=== PATIENT | female | born 1945 | race Hispanic/Latino ===

== ENCOUNTER 2018-10-02 03:20 | Inpatient (IN) | payer MEDICARE, OTHER ==
--- NOTE | 2018-10-02 04:16 | ED PDOC ---
Arrival/HPI - General Chief Complaint: Abdominal Pain Time Seen by Provider: 10/02/18 03:46 Historian: Patient - History of Present Illness Narrative History of Present Illness (Text): 10/02/18 04:20 Marilee Rudolph is a 73 year old female, whose past medical history includes hypertension, PE, DVT, TIA, and hyperlipidemia, who presents to the Emergency department accompanied by daughter complaining of confusion. Daughter reports patient has been experiencing intermittent periods of confusion/disorientation over the past couple of days. Daughter notes patient was recently diagnosed with a UTI and placed on antibiotics 3 days ago by her PMD. On arrival, patient is awake, alert, and oriented x3. Patient reports some suprapubic pain and burning with urination. Patient denies any fever, chills, chest pain, shortness of b reath, nausea, vomiting, diarrhea, back pain, neck pain, headache, dizziness, or any other complaints. PMD: Dr. Guzman Symptom Onset: Gradual Symptom Course: Unchanged Activities at Onset: Light Context: Home Past Medical History - Provider Review Nursing Documentation Reviewed: Yes - Infectious Disease Hx of Infectious Diseases: None - Tetanus Immunization Tetanus Immunization: Unknown - Cardiac Hx Hypertension: Yes Other/Comment: hx- DVT and PE - Pulmonary Hx Respiratory Disorders: No - Neurological HX Cerebrovascular Accident: Yes (TIA) - HEENT Hx HEENT Disorder: No - Renal Hx Renal Disorder: No - Endocrine/Metabolic Hx Endocrine Disorders: No - Hematological/Oncological Hx Blood Disorders: No - Musculoskeletal/Rheumatological Hx Musculoskeletal Disorders: No Hx Arthritis: Yes - Gastrointestinal Hx Gastrointestinal Disorders: No - Genitourinary/Gynecological Hx Genitourinary Disorders: No - Psychiatric Hx Anxiety: Yes Hx Depression: Yes Hx Substance Use: No - Surgical History Hx Appendectomy: Yes Other/Comment: R arm sx as child - Anesthesia Hx Anesthesia: Yes Hx Anesthesia Reactions: No Family/Social History - Physician Review Nursing Documentation Reviewed: Yes Family/Social History: Unknown Family HX Smoking Status: Never Smoked Hx Alcohol Use: No Hx Substance Use: No Allergies/Home Meds Allergies/Adverse Reactions: Allergies No Known Allergies Allergy (Verified 10/02/18 03:56) Home Medications: Home Meds Medication Instructions Recorded Confirmed Atorvastatin [Lipitor] 10 mg PO DAILY 10/02/18 10/02/18 Furosemide [Lasix] 40 mg PO DAILY 10/02/18 10/02/18 Losartan/Hydrochlorothiazide 1 tab PO DAILY 10/02/18 10/02/18 [Hyzaar 100-25 Tablet] Metoprolol [place]/Hydrochlorothiaz 1 tab PO DAILY 10/02/18 10/02/18 [Metoprolol ER-Hctz 25-12.5 mg] Oxybutynin [Ditropan Tab] 5 mg PO DAILY 10/02/18 10/02/18 Pantoprazole [Protonix EC Tab] 40 mg PO DAILY 10/02/18 10/02/18 Potassium Chloride [Klor-Con M10] 10 meq PO DAILY 10/02/18 10/02/18 Warfarin [Coumadin] 3 mg PO DAILY 10/02/18 10/02/18 amLODIPine [Norvasc] 10 mg PO DAILY 10/02/18 10/02/18 hydrALAZINE [Apresoline] 50 mg PO DAILY 10/02/18 10/02/18 traZODone [Desyrel] 50 mg PO DAILY 10/02/18 10/02/18 Review of Systems - Physician Review All systems were reviewed & negative as marked: Yes - Review of Systems Constitutional: Normal. absent: Fevers Eyes: Normal ENT: Normal Respiratory: Normal. absent: SOB, Cough Cardiovascular: Normal. absent: Chest Pain Gastrointestinal: Abdominal Pain. absent: Diarrhea, Nausea, Vomiting Genitourinary Female: Dysuria Musculoskeletal: Normal. absent: Back Pain, Neck Pain Skin: Normal. absent: Rash Neurological: Normal. absent: Headache, Dizziness Endocrine: Normal Hemo/Lymphatic: Normal Psychiatric: Normal Physical Exam Vital Signs Reviewed: Yes Vital Signs Temp Pulse Resp BP Pulse Ox 10/02/18 03:58 98.1 F 73 16 114/79 96 Temperature: Afebrile Blood Pressure: Normal Pulse: Regular Respiratory Rate: Normal Appearance: Positive for: Well-Appearing, Non-Toxic, Comfortable Pain Distress: None Mental Status: Positive for: Alert and Oriented X 3 - Systems Exam Head: Present: Atraumatic, Normocephalic Pupils: Present: PERRL Extroacular Muscles: Present: EOMI Conjunctiva: Present: Normal Mouth: Present: Moist Mucous Membranes Neck: Present: Normal Range of Motion Respiratory/Chest: Present: Clear to Auscultation, Good Air Exchange. No: Resp iratory Distress, Accessory Muscle Use Cardiovascular: Present: Regular Rate and Rhythm, Normal S1, S2. No: Murmurs Abdomen: No: Tenderness, Distention, Peritoneal Signs Back: Present: Normal Inspection Upper Extremity: Present: Normal Inspection. No: Cyanosis, Edema Lower Extremity: Present: Normal Inspection. No: Edema Neurological: Present: GCS=15, CN II-XII Intact, Speech Normal Skin: Present: Warm, Dry, Normal Color. No: Rashes Psychiatric: Present: Alert, Oriented x 3, Normal Insight, Normal Concentration Medical Decision Making ED Course and Treatment: 10/02/18 07:05 CT scan of the head. CLINICAL HISTORY: Altered mental status. TECHNIQUE: Multiple axial CT images were obtained through the brain without IV contrast material. COMPARISON: 08/29/2017. COMMENTS: Left frontal chronic ischemic encephalomalacia. There is normal configuration of sella turcica. There are no intra or extra- axial collections. There is no mass effect or midline shift. There is no evidence of hematoma formation. No hydrocephalus is present. The ventricles are symmetrical. No abnormal calcifications are present. There is diffuse age-appropriate cerebellar and cerebral atrophy with proportionally dilated ventricles and cortical sulci. There are bilateral periventricular and subcortical white matter hypolucencies compatible with mild chronic microvascular disease. Otherwise, no significant focal abnormalities are seen either in the posterior fossa or supratentorial compartment. IMPRESSION: 1. Age-appropriate cerebellar and cerebral atrophy. 2. Mild chronic microvascular disease. 3. No evidence of acute intracranial pathology. 10/02/18 07:06 CLINICAL INDICATION: Lower abdominal pain. TECHNIQUE: Axial and reformatted sagittal and coronal images of the abdomen pelvis obtained without IV contrast administration. COMPARISON: None. FINDINGS: The visualized lung bases are unremarkable. Normal unenhanced liver. Normal gallbladder and extrahepatic biliary system. Normal unenhanced spleen. Normal pancreas. Normal bilateral adrenal glands. Normal size of the right kidney. There is no right renal mass. There are no r ight renal calculi. There is no right hydronephrosis. Normal visualized right ureter. 1.8 cm well-defined hyperdense lesion of the right kidney, probably a complex cyst. Normal size of the left kidney. There is no left renal mass. There are no left renal calculi. There is no left hydronephrosis. Normal visualized left ureter. Normal visualized stomach. Normal small intestine. Uncomplicated diverticulosis of the colon. The appendix is surgically absent. There is no demonstrated peritoneal fluid. Normal abdominal aorta. Normal inferior vena cava. Normal retroperitoneum. Mild right posterolateral hyperdensity of the bladder wall measuring 2.5 x 1.2 cm. Distended urinary bladder. There is no pelvic mass lesion or lymphadenopathy. There is no pelvic fluid. Hysterectomy. Normal abdominal wall. Moderate diffuse spondylosis. IMPRESSION: Distended bladder. Mild right posterolateral hyperdensity of the bladder wall. This can be secondary to acute hemorrhagic material, clot or neural neoplastic pathology. Followup is suggested. Electronically signed on Oct 02, 2018 6:43:28 AM EST by: Aly Hoff M.D., Certified by ABR, MSK, Neuroradiology 10/02/18 07:00 Case was discussed with .Accepts to her service.Pt. voided large amount o urine short while prior.U/A Urine c/s was sent.Pt. had previously been started on Cipro currently taking for UTI.Dr. Guzman suggests starting IV Rocephin.Request urology consult . - Lab Interpretations I have reviewed the lab results: Yes - RAD Interpretation Hand Riveter: ED Physician - EKG Interpretation EKG Interpretation (Text): 10/02/18 07:07 EKG-NSR @79 normal ekg Interpreted by ED Physician: Yes Type: 12 lead EKG - Scribe Statement The provider has reviewed the documentation as recorded by the Cristianibe Macie Mir Provider Scribe Attestation: All medical record entries made by the Scribe were at my direction and personally dictated by me. I have reviewed the chart and agree that the record accurately reflects my personal performance of the history, physical exam, medical decision making, and the department course for this patient. I have also personally directed, reviewed, and agree with the discharge instructions and disposition. Disposition/Present on Arrival - Present on Arrival Any Indicators Present on Arrival: No History of DVT/PE: No History of Uncontrolled Diabetes: No Urinary Catheter: No History of Decub. Ulcer: No History Surgical Site Infection Following: None - Disposition Have Diagnosis and Disposition been Completed?: Yes Diagnosis: Altered mental status, UTI (urinary tract infection) Disposition: HOSPITALIZED Disposition Time: 07:00 Patient Plan: Observation Patient Problems: Current Active Problems Problem Status Onset Altered mental status Acute UTI (urinary tract infection) Acute Condition: STABLE Forms: [facility] ([place]ican)
[2018-10-02 05:28] LABS: HEMOGLOBIN 11.2 g/dL (12.0-16.0); MEAN CELL VOLUME 87.6 fl (80.0-105.0); MEAN CORPUSCULAR HEMOGLOBIN 27.9 pg (25.0-35.0); MEAN CORPUSCULAR HGB CONC 31.8 g/dl (31.0-37.0); MEAN PLATELET VOLUME 10.8 fl (7.0-11.0); RBC 4.02 10^6/uL (3.5-6.1); RED CELL DISTRIBUTION WIDTH 14.3 % (11.5-14.5); WHITE BLOOD COUNT 7.9 10^3/uL (4.5-11.0)
[2018-10-02 05:39] LABS: ALB/GLOB RATIO 1.1 (1.1-1.8); ALBUMIN 3.9 g/dL (3.0-4.8); ALT/SGPT 25 U/L (7-56); AST/SGOT 35 U/L (14-36); BLOOD UREA NITROGEN 44 mg/dL (7-21); CALCIUM 9.8 mg/dL (8.4-10.5); GFR NON-AFRICAN AMERICAN 17; LIPASE 643 U/L (23-300)
[2018-10-02 05:50] LABS: TROPONIN I < 0.01 ng/mL
[2018-10-02] MEDS ORDERED: Sodium Chloride 0.9% 1,000 ML IV STA (06:00)
[2018-10-02] MEDS ORDERED: cefTRIAXone 1 gm 1 GM/100 ML BAG IV STA (06:58)
[2018-10-02 07:39] LABS: URINE BILIRUBIN NEGATIVE (NEGATIVE); URINE BLOOD TRACE-INTACT (NEGATIVE); URINE GLUCOSE (UA) NEGATIVE (NEGATIVE); URINE LEUKOCYTE ESTERASE SMALL Leu/uL (NEGATIVE); URINE PROTEIN NEGATIVE mg/dL (<30 mg/dL); URINE UROBILINOGEN 0.2 E.U./dL (<1 E.U./dL)
[2018-10-02 07:41] LABS: URINE APPEARANCE CLEAR (CLEAR); URINE COLOR YELLOW (YELLOW)
[2018-10-02 07:55] LABS: URINE BACTERIA SMALL (NEG)
--- NOTE | 2018-10-02 09:23 | CT ---
Date of service: 10/02/2018 PROCEDURE: CT HEAD WITHOUT CONTRAST. HISTORY: ams COMPARISON: 08/29/2017 TECHNIQUE: Axial computed tomography images were obtained through the head/brain without intravenous contrast. Radiation dose: Total exam DLP = 867.6 mGy-cm. This CT exam was performed using one or more of the following dose reduction techniques: Automated exposure control, adjustment of the mA and/or kV according to patient size, and/or use of iterative reconstruction technique. FINDINGS: HEMORRHAGE: No intracranial hemorrhage. BRAIN: No mass effect or edema. Chronic periventricular white matter ischemic disease with old left MCA distribution infarct. VENTRICLES: Unremarkable. No hydrocephalus. CALVARIUM: Unremarkable. PARANASAL SINUSES: Unremarkable as visualized. No significant inflammatory changes. MASTOID AIR CELLS: Unremarkable as visualized. No inflammatory changes. OTHER FINDINGS: None. IMPRESSION: No acute hemorrhage.
--- NOTE | 2018-10-02 09:28 | CT ---
Date of service: 10/02/2018 PROCEDURE: CT Abdomen and Pelvis without intravenous contrast HISTORY: lower abdominal pain COMPARISON: None. TECHNIQUE: Technique. Contrast dose: Radiation dose: Total exam DLP = 897.26 mGy-cm. This CT exam was performed using one or more of the following dose reduction techniques: Automated exposure control, adjustment of the mA and/or kV according to patient size, and/or use of iterative reconstruction technique. FINDINGS: LOWER THORAX: Unremarkable. LIVER: Unremarkable. No gross lesion or ductal dilatation. GALLBLADDER AND BILE DUCTS: Unremarkable. PANCREAS: Unremarkable. No gross lesion or ductal dilatation. SPLEEN: Unremarkable. ADRENALS: Unremarkable. No mass. KIDNEYS AND URETERS: Unremarkable. No hydronephrosis. No solid mass. VASCULATURE: Unremarkable. No aortic aneurysm. No aortic atherosclerotic calcification or mural plaque present. BOWEL: Unremarkable. No obstruction. No gross mural thickening. APPENDIX: Unremarkable. Normal appendix. PERITONEUM: Unremarkable. No free fluid. No free air. LYMPH NODES: Unremarkable. No enlarged lymph nodes. BLADDER: Nonspecific 18 millimeter right posterior-lateral bladder soft tissue density; cannot exclude neoplasm; with cystoscopy. REPRODUCTIVE: Unremarkable. BONES: No acute fracture. OTHER FINDINGS: None. IMPRESSION: Nonspecific 18 millimeter right posterior-lateral bladder soft tissue density; cannot exclude neoplasm; with cystoscopy.
[2018-10-02] MEDS ORDERED: METOPROLOL SU PO SCH (11:15)
[2018-10-02] MEDS ORDERED: [UNRECOGNIZED DRUG - OTHER] PO SCH (11:15)
[2018-10-02] MEDS ORDERED: HYDROCHLOROTHIAZ PO SCH (11:15)
[2018-10-02] MEDS ORDERED: Non Formulary Medication (Losartan/Hydrochlorothiazide [Hyzaar 100-25 Tablet] 1 TAB) PO SCH (11:15)
[2018-10-02] MEDS ORDERED: Metoprolol Succinate 25 mg XL Tab PO ONE (11:30)
[2018-10-02] MEDS: Pantoprazole 40 mg EC Tab PO SCH (12:29)
[2018-10-02] MEDS: Dextrose 5%/0.45% NS 1,000 ML IV SCH (12:29)
[2018-10-02 13:43] VITALS: BMI 34.0
[2018-10-02] MEDS ORDERED: Pneumococcal 23-Valent Vaccine IM ONE (13:44)
[2018-10-02] MEDS ORDERED: Influenza Vaccine 60 mcg/0.5 mL SYR (4YR UP) IM ONE (13:44)
--- NOTE | 2018-10-02 14:35 | CARD ---
APPROVED REPORT Date of service: 10/02/2018 EKG Measurement Heart [id number] <Conclusion> Normal sinus rhythm Normal ECG
--- NOTE | 2018-10-02 14:59 | CP.PCM.CON ---
<Gautam Mc - Last Filed: 10/02/18 14:55> History of Present Illness - History of Present Illness History of Present Illness: Podiatry consult notes for attending Dr. Madsen: 73 y/o F patient with PMH of hypertension, PE, DVT, TIA, and hyperlipidemia seen and evaluated in the bedside for b/l foot and ankle pain. Patient was sitting in her bed comfortably and NAD. Patient looks a little confused at the encounter time. Patient states that both her feet and ankles are hurting her when specially when she is on the bed. She states that the pain is in her joints and it's 6/10. Patient states that the pain gets better by walking. She states that the pain is present since many years. She states that she has attacks of burning sensations in her feet but she denies any tingling or numbness. Patient states that she had a stroke but by reviewing her medical chart she had TIA. Patient de nies any recent F/N/V/C/C/CP or SOB. PMH: hypertension, PE, DVT, TIA, and hyperlipidemia. PSH: Appendectomy, Hysterectomy and surgery of her R arm. Allergies: NKDA. Social Hx: Denies smoking, EtOH use or Illicit drug use. Review of Systems - Review of Systems Review of Systems: As per HPI - Constitutional Constitutional: As Per HPI Past Patient History - Infectious Disease Hx of Infectious Diseases: None - Tetanus Immunizations Tetanus Immunization: Unknown - Past Social History Smoking Status: Never Smoked - CARDIAC Hx Cardiac Disorders: Yes Hx Hypercholesterolemia: Yes Hx Hypertension: Yes Hx Peripheral Edema: Yes (ble +2 pitting feet ankles lower legs) Other/Comment: hx- DVT left leg poplitial vein 09/05/17 and PE 09/05/17 - PULMONARY Hx Respiratory Disorders: Yes Hx Bronchitis: Yes - NEUROLOGICAL Hx Neurological Disorder: Yes HX Cerebrovascular Accident: Yes (TIA no deficits 8 yrs ago) - HEENT Hx HEENT Problems: No - RENAL Hx Chronic Kidney Disease: No - ENDOCRINE/METABOLIC Hx Endocrine Disorders: No - HEMATOLOGICAL/ONCOLOGICAL Hx Blood Disorders: No - INTEGUMENTARY Hx Dermatological Problems: Yes Other/Comment: generalized moles over body, dry skin to both heels left heel hard dry skin, dry skin both feet, dry toenails, stage 1 moisture related red closed wound to right buttocks, buttocks reddened - MUSCULOSKELETAL/RHEUMATOLOGICAL Hx Falls: No - GASTROINTESTINAL Hx Gastrointestinal Disorders: Yes (obese) Other/Comment: constipation about 1 month has bm every 2 days not taking any otc laxatives, winds up going on her own, "but it's hard." stated pt - GENITOURINARY/GYNECOLOGICAL Hx Genitourinary Disorders: Yes Hx Incontinence: Yes Hx Urinary Tract Infection: Yes (uti dx 3 days ago on abx) - PSYCHIATRIC Hx Substance Use: No - SURGICAL HISTORY Hx Surgeries: Yes Hx Appendectomy: Yes Other/Comment: R arm sx as child - ANESTHESIA Hx Anesthesia: Yes Hx Anesthesia Reactions: No Meds Allergies/Adverse Reactions: Allergies Allergy/AdvReac Type Severity Reaction Status Date / Time No Known Allergies Allergy Verified 10/02/18 03:56 - Medications Medications: Current Medications Amlodipine Besylate (Norvasc) 10 mg PO DAILY [facility] Last Admin: 10/02/18 12:27 Dose: 10 mg Atorvastatin Calcium (Lipitor) 10 mg PO DAILY [facility] Last Admin: 10/02/18 12:26 Dose: 10 mg Hydralazine HCl (Apresoline) 50 mg PO DAILY [facility] Last Admin: 10/02/18 12:27 Dose: 50 mg Hydrochlorothiazide (Microzide) 12.5 mg PO DAILY [facility] Dextrose/Sodium Chloride (Dextrose 5%/0.45% Ns 1000 Ml) 1,000 mls @ 75 mls/hr IV .[id number] [facility] Last Admin: 10/02/18 12:29 Dose: 75 mls/hr Ceftriaxone Sodium (Rocephin 1 Gram Ivpb) 1 gm in 100 mls @ 100 mls/hr IVPB DAILY [facility]; Protocol Losartan Potassium (Cozaar) 100 mg PO DAILY [facility] Metoprolol Succinate (Toprol Xl) 25 mg PO DAILY [facility] Pantoprazole Sodium (Protonix Ec Tab) 40 mg PO DAILY [facility] Last Admin: 10/02/18 12:29 Dose: 40 mg Trazodone HCl (Desyrel) 50 mg PO [facility] Physical Exam - Constitutional Appears: Well, Non-toxic, No Acute Distress - Head Exam Head Exam: ATRAUMATIC, NORMOCEPHALIC - Extremities Exam Additional comments: B/L LE focused exam: Vasc: DP 2/4, PT 1/4 due to perimalleolar edema. Cap refill < 3 sec to all digits. Temp gradient warm to cool from proximal to distal. B/L moderate non pitting perimalleolar edema L > R. Neuro: Gross and protective sensations are intact b/l. Derm: No open lesions, no clinical signs of active infections, Toe nails discolored and distrophic X 10. Diffuse dryness noted to the plantar aspect of the heel and the the lateral perimalleolar area b/l. MSK: Pain on palpating the ankle joint b/l. Pain with eversion of the foot b/l. Muscle power intact to all groups 5/5. - Neurological Exam Neurological exam: Alert Results - Vital Signs Recent Vital Signs: Last Vital Signs Temp 97.6 F 10/02/18 07:28 Pulse 81 10/02/18 12:26 Resp 18 10/02/18 13:23 BP 125/64 10/02/18 12:27 Pulse Ox 96 10/02/18 07:28 - Labs Result Diagrams: 10/02/18 04:50 10/02/18 04:50 Labs: Laboratory Results - last 24 hr 10/02/18 10/02/18 10/02/18 04:50 04:50 06:45 WBC 7.9 RBC 4.02 Hgb 11.2 L Hct 35.2 L MCV 87.6 MCH 27.9 MCHC 31.8 RDW 14.3 Plt Count 196 MPV 10.8 Sodium 137 Potassium 4.2 Chloride 102 Carbon Dioxide 27 Anion Gap 13 BUN 44 H Creatinine 2.7 H Est GFR ( Amer) 21 Est GFR (Non-Af Amer) 17 Random Glucose 106 Calcium 9.8 Total Bilirubin 0.5 AST 35 ALT 25 Alkaline Phosphatase 67 Lactate Dehydrogenase 442 Total Creatine Kinase 66 Troponin I < 0.01 D Total Protein 7.4 Albumin 3.9 Globulin 3.5 Albumin/Globulin Ratio 1.1 Lipase 643 H Urine Color Yellow Urine Appearance Clear Urine pH 6.0 Ur Specific [place] 1.015 Urine Protein Negative Urine Glucose (UA) Negative Urine Ketones Negative Urine Blood Trace-intact H Urine Nitrate Negative Urine Bilirubin Negative Urine Urobilinogen 0.2 Ur Leukocyte Esterase Small H Urine RBC 10 - 15 Urine WBC 10 - 15 Ur Epithelial Cells 1 - 3 Urine Bacteria Small Assessment & Plan - Assessment and Plan (Free Text) Assessment: 73 y/o F patient seen and evaluated in the bedside for b/l foot and ankle pain. Plan: - Patient seen and evaluated at the bedside. - Plan discussed in details with attending dr. Madsen. - Charts, labs and vitals reviewed: Afebrile, no leukocytosis - Ordered B/L 3 views foot x-ray. - Ordered B/L 3 views ankle x-ray. - RX; Lotrimine 1% cream topical BID. - Rx; Ammonium lactate 12% cream topical BID. - Thank you for consulting podiatry service. - Podiatry will continue to follow up the patient while in house. - Date & Time Date: 10/02/18 Time: 15:14 <Torie Madsen - Last Filed: 10/06/18 15:14> Meds - Medications Medications: Current Medications Alprazolam (Xanax) 0.5 mg PO TID PRN; Protocol PRN Reason: severe anxiety Stop: 10/11/18 18:01 Last Admin: 10/06/18 15:11 Dose: 0.5 mg Amlodipine Besylate (Norvasc) 10 mg PO DAILY [facility] Last Admin: 10/06/18 10:13 Dose: 10 mg Atorvastatin Calcium (Lipitor) 10 mg PO DAILY [facility] Last Admin: 10/06/18 10:13 Dose: 10 mg Cefpodoxime Proxetil (Vantin) 200 mg PO DAILY [facility] Last Admin: 10/06/18 10:13 Dose: 200 mg Hydralazine HCl (Apresoline) 50 mg PO DAILY [facility] Last Admin: 10/06/18 10:13 Dose: 50 mg Hydrochlorothiazide (Microzide) 12.5 mg PO DAILY [facility] Last Admin: 10/06/18 10:13 Dose: 12.5 mg Lactic Acid (Lac-Hydrin 12% Cream (140 G)) 1 ea TOP BID [facility] Last Admin: 10/06/18 10:13 Dose: 1 appl Losartan Potassium (Cozaar) 100 mg PO DAILY [facility] Last Admin: 10/06/18 10:13 Dose: 100 mg Metoprolol Succinate (Toprol Xl) 25 mg PO DAILY [facility] Last Admin: 10/06/18 10:12 Dose: 25 mg Oxybutynin Chloride (Ditropan Tab) 5 mg PO BID [facility] Last Admin: 10/06/18 10:13 Dose: 5 mg Pantoprazole Sodium (Protonix Ec Tab) 40 mg PO DAILY [facility] Last Admin: 10/06/18 10:13 Dose: 40 mg Trazodone HCl (Desyrel) 50 mg PO HS [facility] Last Admin: 10/05/18 22:27 Dose: 50 mg Warfarin Sodium (Coumadin) 6 mg PO 1800 [facility]; Protocol Last Admin: 10/05/18 19:08 Dose: 6 mg Results - Vital Signs Recent Vital Signs: Last Vital Signs Temp 98.9 F 10/06/18 14:00 Pulse 96 H 10/06/18 14:00 Resp 18 10/06/18 14:00 BP 106/65 10/06/18 14:00 Pulse Ox 94 L 10/06/18 14:00 - Labs Result Diagrams: 10/04/18 06:30 10/06/18 06:45 Labs: Laboratory Results - last 24 hr 10/06/18 10/06/18 06:45 06:45 PT 30.3 H INR 2.58 Sodium 138 Potassium 4.1 Chloride 105 Carbon Dioxide 30 Anion Gap 8 L BUN 21 Creatinine 1.5 H Est GFR ( Amer) 41 Est GFR (Non-Af Amer) 34 Random Glucose 102 Calcium 8.9 Total Bilirubin 0.2 AST 21 ALT 29 Alkaline Phosphatase 53 Total Protein 5.9 Albumin 3.0 Globulin 2.9 Albumin/Globulin Ratio 1.0 L Attending/Attestation - Attestation I have personally seen and examined this patient.: Yes I have fully participated in the care of the patient.: Yes I have reviewed all pertinent clinical information: Yes
--- NOTE | 2018-10-02 15:26 | HP ---
DATE OF EXAM: 10/02/2018 HISTORY OF PRESENT ILLNESS: Patient is a 73-year-old, seen in office. According to daughter, she is sluggish and not herself. She was found to have UTI. She was started on Cipro, but yesterday patient's daughter noted that she seemed to be little confused, not feeling feel, and not eating. She recently lost her . She thought it is because of depression. She was also started on some anxiety medication. There was no history of fever or chills. No history of nausea or vomiting, but does not decrease appetite. No abdominal pain. She did have suprapubic discomfort. PAST MEDICAL HISTORY: Significant for; 1. Hypertension. 2. Hyperlipidemia. 3. History of anxiety. 4. History of PE on oral anticoagulant. ALLERGIES: SHE IS NOT ALLERGIC TO ANY MEDICATIONS. MEDICATIONS AT HOME: She is on Coumadin 3 mg daily, she is on Protonix 40 mg daily, she is on potassium 10 mEq daily, Lasix 40 mg daily, hydralazine 50 mg daily, oxybutynin, losartan, metoprolol, trazodone and atorvastatin. SOCIAL HISTORY: She lives with her daughter and no history of smoking or drinking. PHYSICAL EXAMINATION GENERAL: She is awake, alert, oriented, and communicative. VITAL SIGNS: She is afebrile. Pulse 80, respirations 18 and blood pressure 125/64. LUNGS: Bilateral fair airflow. No rhonchi or crackle. HEART: S1 and S2 audible. ABDOMEN: Soft and nontender. No rebound. No guarding. NEUROLOGICAL: Patient is awake, alert, oriented, and able to communicate. LABORATORY DATA: WBC 7.9, hemoglobin 11.2, hematocrit 35.2, and platelets of 196. Chemistry; sodium 137, potassium 4.2, chloride 102, CO2 of 27, BUN 44, creatinine and blood sugar 106. LFTs are within normal limits. Urine shows intact blood, small leukocyte, WBC is [address] scan of the abdomen and pelvis was done that shows nonspecific 18 mm right posterolateral bladder soft tissue. ASSESSMENT: 1. Acute renal failure, probably poor oral intake and dehydration. 2. Urinary tract infection. 3. History of hypertension. 4. Pulmonary emboli. 5. Anxiety disorder. PLAN: We will request Dr. Metzger to see patient. Dr. Ventura is on the case. We will continue antibiotics, continue IV fluid and monitor her electrolyte. CBC, CMP, and PT/INR in a.m. Neo Guzman MD
[2018-10-02] MEDS: Ammonium Lactate 12% Lotion (225 g) EXT SCH (17:41)
[2018-10-02] MEDS: Ammonium Lactate 12% Cream (140 g) TOP SCH (17:42)
[2018-10-02] MEDS ORDERED: Ammonium Lactate 12% Lotion (225 g) EXT SCH (18:00)
[2018-10-02] MEDS ORDERED: Ammonium Lactate 12% Cream (140 g) TOP SCH (18:00)
[2018-10-03 06:59] LABS: BASO # 0.04 K/mm3 (0.0-2.0); BASO % 0.6 % (0.0-3.0); EOS # 0.2 (0.0-0.7); EOS % 3.3 % (1.5-5.0); GRAN # 4.31 (1.4-6.5); GRAN % 67.9 % (50.0-68.0); HEMOGLOBIN 10.6 g/dL (12.0-16.0); LYMPH # 1.4 (1.2-3.4); LYMPH % 21.9 % (22.0-35.0); MEAN CELL VOLUME 87.5 fl (80.0-105.0); MEAN CORPUSCULAR HEMOGLOBIN 27.7 pg (25.0-35.0); MEAN CORPUSCULAR HGB CONC 31.6 g/dl (31.0-37.0); MEAN PLATELET VOLUME 10.7 fl (7.0-11.0); MONO # 0.4 (0.1-0.6); MONO % 6.3 % (1.0-6.0); RBC 3.83 10^6/uL (3.5-6.1); RED CELL DISTRIBUTION WIDTH 14.4 % (11.5-14.5); WHITE BLOOD COUNT 6.4 10^3/uL (4.5-11.0)
[2018-10-03 07:01] LABS: INR 1.84; PROTHROMBIN TIME 21.4 SECONDS (9.4-12.5)
[2018-10-03 08:16] LABS: ALB/GLOB RATIO 1.1 (1.1-1.8); ALBUMIN 3.4 g/dL (3.0-4.8); CALCIUM 9.3 mg/dL (8.4-10.5)
[2018-10-03] MEDS: Metoprolol Succinate 25 mg XL Tab PO SCH (09:57)
[2018-10-03] MEDS: Pantoprazole 40 mg EC Tab PO SCH (09:58)
--- NOTE | 2018-10-03 10:07 | RAD ---
Date of service: 10/02/2018 PROCEDURE: Right Ankle Radiographs. HISTORY: Right ankle pain COMPARISON: None available. FINDINGS: BONES: Normal. No fracture. JOINTS: Normal. No osteoarthritis. Ankle mortise maintained. Talar dome intact SOFT TISSUES: Normal. OTHER FINDINGS: None. IMPRESSION: Normal right ankle radiographs.
--- NOTE | 2018-10-03 10:08 | RAD ---
Date of service: 10/02/2018 PROCEDURE: Right Foot Radiographs. HISTORY: Right foot pain COMPARISON: None. FINDINGS: BONES: Normal. No fracture. JOINTS: Mild degenerative changes in the interphalangeal joints SOFT TISSUES: Normal. OTHER FINDINGS: None. IMPRESSION: Mild degenerative changes in the interphalangeal joints
--- NOTE | 2018-10-03 10:09 | RAD ---
Date of service: 10/02/2018 PROCEDURE: Left Ankle Radiographs. HISTORY: Left ankle pain COMPARISON: None available. FINDINGS: BONES: Normal. No fracture. JOINTS: Normal. No osteoarthritis. Ankle mortise maintained. Talar dome intact SOFT TISSUES: Normal. OTHER FINDINGS: None. IMPRESSION: Normal left ankle radiographs.
[2018-10-03] MEDS: cefTRIAXone 1 gm 1 GM/100 ML BAG IVPB SCH (10:10)
[2018-10-03] MEDS: Ammonium Lactate 12% Lotion (225 g) EXT SCH ×2 (11:00→17:35)
--- NOTE | 2018-10-03 11:38 | CP.PCM.PN ---
<Gautam Mc - Last Filed: 10/03/18 13:16> Subjective - Date & Time of Evaluation Date of Evaluation: 10/03/18 Time of Evaluation: 11:35 - Subjective Subjective: Podiatry consult notes for attending Dr. Guerra: 73 y/o F patient seen and evaluated in the bedside for b/l foot and ankle pain. Patient was sitting in her bed comfortably and NAD. Patient states that the pain ia present but less than yesterday. Patient denies any overnight F/N/V/C/C/CP or SOB. Patient denies any other pedal complaint at this time. Objective - Vital Signs/Intake and Output Vital Signs (last 24 hours): Temp Pulse Resp BP Pulse Ox 97.8 F 88 20 111/77 96 10/03/18 07:00 10/03/18 09:57 10/03/18 07:00 10/03/18 09:59 10/03/18 07:00 Intake and Output: 10/03/18 10/03/18 06:59 18:59 Intake Total 180 Balance 180 - Medications Medications: Current Medications Amlodipine Besylate (Norvasc) 10 mg PO DAILY [facility] Last Admin: 10/03/18 09:59 Dose: 10 mg Atorvastatin Calcium (Lipitor) 10 mg PO DAILY [facility] Last Admin: 10/03/18 09:57 Dose: 10 mg Hydralazine HCl (Apresoline) 50 mg PO DAILY [facility] Last Admin: 10/03/18 09:57 Dose: 50 mg Hydrochlorothiazide (Microzide) 12.5 mg PO DAILY [facility] Last Admin: 10/03/18 09:59 Dose: 12.5 mg Dextrose/Sodium Chloride (Dextrose 5%/0.45% Ns 1000 Ml) 1,000 mls @ 75 mls/hr IV .[id number] [facility] Last Admin: 10/02/18 12:29 Dose: 75 mls/hr Ceftriaxone Sodium (Rocephin 1 Gram Ivpb) 1 gm in 100 mls @ 100 mls/hr IVPB DAILY [facility]; Protocol Last Admin: 10/03/18 10:10 Dose: 100 mls/hr Lactic Acid (Lac-Hydrin 12% Lotion (225 G)) 0 gm EXT BID [facility] Last Admin: 10/02/18 17:41 Dose: 1 applic Lactic Acid (Lac-Hydrin 12% Cream (140 G)) 1 ea TOP BID [facility] Last Admin: 10/02/18 17:42 Dose: Not Given Losartan Potassium (Cozaar) 100 mg PO DAILY [facility] Last Admin: 10/03/18 09:58 Dose: 100 mg Metoprolol Succinate (Toprol Xl) 25 mg PO DAILY [facility] Last Admin: 10/03/18 09:57 Dose: 25 mg Pantoprazole Sodium (Protonix Ec Tab) 40 mg PO DAILY [facility] Last Admin: 10/03/18 09:58 Dose: 40 mg Trazodone HCl (Desyrel) 50 mg PO HS [facility] Last Admin: 10/02/18 21:46 Dose: 50 mg - Labs Labs: 10/03/18 06:30 10/03/18 06:30 PT 21.4 SECONDS (9.4-12.5) H 10/03/18 06:30 INR 1.84 10/03/18 06:30 - Constitutional Appears: Well, Non-toxic, No Acute Distress - Head Exam Head Exam: ATRAUMATIC, NORMOCEPHALIC - Extremities Exam Additional comments: B/L LE focused exam: Vasc: DP 2/4, PT 1/4 due to perimalleolar edema. Cap refill < 3 sec to all digits. Temp gradient warm to cool from proximal to distal. B/L moderate non pitting perimalleolar edema L > R. Neuro: Gross and protective sensations are intact b/l. Derm: No open lesions, no clinical signs of active infections, Toe nails d iscolored and distrophic X 10. Diffuse dryness noted to the plantar aspect of the heel and the the lateral perimalleolar area b/l. MSK: Pain on palpating the ankle joint b/l. Pain with eversion of the foot b/l. Muscle power intact to all groups 5/5. - Neurological Exam Neurological Exam: Alert, Awake, Oriented x3 - Psychiatric Exam Psychiatric exam: Normal Affect, Normal Mood Assessment and Plan - Assessment and Plan (Free Text) Assessment: 73 y/o F patient seen and evaluated in the bedside for b/l foot and ankle pain. Plan: - Patient seen and evaluated at the bedside. - Plan discussed in details with attending Dr. Guerra. - Charts, labs and vitals reviewed: Afebrile, no leukocytosis. - B/L 3 views foot x-ray: Degenerative changes noted in the phalanges. - B/L 3 views ankle x-ray: No bone anomalies noted. - Explained to the patient that the cause of her foot and ankle pain is due to chronic arthritis. - Patient advised to lose weight and to use OTC Tylenol for pain. - Continue Lotrimine 1% cream topical BID. - Continue Ammonium lactate 12% cream topical BID. - Podiatry will sign off the patient. - Thank you for consulting podiatry service. <Buzz Guerra - Last Filed: 10/03/18 16:00> Objective - Vital Signs/Intake and Output Vital Signs (last 24 hours): Temp Pulse Resp BP Pulse Ox 97.8 F 88 20 111/77 96 10/03/18 07:00 10/03/18 09:57 10/03/18 07:00 10/03/18 09:59 10/03/18 07:00 Intake and Output: 10/03/18 10/03/18 06:59 18:59 Intake Total 180 Balance 180 - Medications Medications: Current Medications Amlodipine Besylate (Norvasc) 10 mg PO DAILY [facility] Last Admin: 10/03/18 09:59 Dose: 10 mg Atorvastatin Calcium (Lipitor) 10 mg PO DAILY [facility] Last Admin: 10/03/18 09:57 Dose: 10 mg Hydralazine HCl (Apresoline) 50 mg PO DAILY [facility] Last Admin: 10/03/18 09:57 Dose: 50 mg Hydrochlorothiazide (Microzide) 12.5 mg PO DAILY [facility] Last Admin: 10/03/18 09:59 Dose: 12.5 mg Dextrose/Sodium Chloride (Dextrose 5%/0.45% Ns 1000 Ml) 1,000 mls @ 75 mls/hr IV .[id number] [facility] Last Admin: 10/02/18 12:29 Dose: 75 mls/hr Ceftriaxone Sodium (Rocephin 1 Gram Ivpb) 1 gm in 100 mls @ 100 mls/hr IVPB DA [facility]; Protocol Last Admin: 10/03/18 10:10 Dose: 100 mls/hr Lactic Acid (Lac-Hydrin 12% Lotion (225 G)) 0 gm EXT BID [facility] Last Admin: 10/02/18 17:41 Dose: 1 applic Lactic Acid (Lac-Hydrin 12% Cream (140 G)) 1 ea TOP BID [facility] Last Admin: 10/02/18 17:42 Dose: Not Given Losartan Potassium (Cozaar) 100 mg PO DAILY [facility] Last Admin: 10/03/18 09:58 Dose: 100 mg Metoprolol Succinate (Toprol Xl) 25 mg PO DAILY [facility] Last Admin: 10/03/18 09:57 Dose: 25 mg Pantoprazole Sodium (Protonix Ec Tab) 40 mg PO DAILY [facility] Last Admin: 10/03/18 09:58 Dose: 40 mg Trazodone HCl (Desyrel) 50 mg PO HS [facility] Last Admin: 10/02/18 21:46 Dose: 50 mg - Labs Labs: 10/03/18 06:30 10/03/18 06:30 PT 21.4 SECONDS (9.4-12.5) H 10/03/18 06:30 INR 1.84 10/03/18 06:30 Attending/Attestation - Attestation I have personally seen and examined this patient.: Yes I have fully participated in the care of the patient.: Yes I have reviewed all pertinent clinical information, including history, physical exam and plan: Yes
--- NOTE | 2018-10-03 18:40 | CON ---
DATE OF CONSULTATION: 10/03/2018 HISTORY OF PRESENT ILLNESS: Shortly, the patient is 73-year-old female with multiple medical issues including hypertension, PE, DVT, TIA, and hyperlipidemia. The patient was admitted on the medical side for altered mental status, which most likely related to urinary tract infection. Psych consult was called for evaluation of depressive symptoms. The patient lost her less than 3 months ago. The patient was seen and examined today. The patient is very well known to this tag writer because this tag writer was taking care of her . The patient reported that she feels depressed, she feels very anxious, she cannot sleep well as she is worrying about things a lot. The patient denied that she has any thoughts of killing herself or others. Denied any hallucinations. Medication list was requested from the patient's pharmacy, . The patient was on trazodone 50 mg at the nighttime and that is old for psychotropic medications. The patient reported that she was compliant with the medication, but complained of extreme anxiety. VITAL SIGNS: Seems to be stable. Temperature 97.8, pulse is 88, blood pressure 111/77, respirations 26. MEDICATIONS: Reviewed. The patient is on multiple medications including trazodone 50 mg at the nighttime. This tag writer will start Xanax 0.25 mg as needed for severe anxiety. LABS: Reviewed. Coagulation reviewed. Chemistry reviewed. Urinalysis showed leukocyte esterase. Microbiology reviewed. MENTAL STATUS EXAM: The patient presented to be alert, oriented, pleasant, good personal hygiene, fair eye contact. Mood is described as depressed, at times hopeless and anxious. Affect was mood congruent. Thought Process: Over inclusive and circumstantial. Thought Content: The patient denied visual, auditory, or tactile hallucinations. Denied paranoid ideation. Denied thoughts of harming herself or others, denied intents or plan. IMPRESSION: Rule out adjustment disorder with depressed and anxious mood. Rule out mood disorder due to general medical condition. PLAN: Trazodone will be continued. This tag writer added Xanax because the patient was on Klonopin based on [facility] [phone]. The patient was on Klonopin 0.25 mg one tablet three times a day, 30 pills were filled on 09/16/2018. Prescriber is Dr. Guzman. We will continue all of the medication and we will follow up on the patient tomorrow. Should you have any questions, give me a call back. Domenica Sargent MD
[2018-10-03] MEDS: Dextrose 5%/0.45% NS 1,000 ML IV SCH (20:03)
--- NOTE | 2018-10-03 20:32 | CON ---
DATE: 10/03/2018 UROLOGY CONSULTATION CHIEF COMPLAINT: Altered mental status. HISTORY OF PRESENT ILLNESS: This is a 73-year-old female, who is seen in [facility]. The patient was admitted with reportedly an altered mental status. She had been seen by her primary earlier in the week and was being treated with antibiotics for a urinary tract infection. The patient's daughter reports she then became disoriented and was taken to the emergency room. She has an extensive past medical history with multiple comorbidities. During her hospitalization, the patient has been complaining of urinary frequency and urgency as well as chronic urinary incontinence. Incontinence appears mostly to be urge incontinence. She has been started on oxybutynin 5 mg b.i.d.; however, reportedly this has not been helping. She does take multiple diuretics including Lasix and a combination of hydrochlorothiazide with an antihypertensive. She denies any current dysuria and has had no gross hematuria. No flank pain or history of stones. During the admission, CT scan was done also, which showed a possible bladder lesion and a Urology consultation was then requested. PAST MEDICAL HISTORY: Significant for hypertension, hyperlipidemia, anxiety, altered mental status, pulmonary embolus. ALLERGIES: NO KNOWN DRUG ALLERGIES. MEDICATIONS: Include Coumadin, Protonix, hydralazine, Cozaar, trazodone, Lipitor, Microzide, Norvasc, Rocephin, Toprol, Xanax, and was on Lasix at home. FAMILY HISTORY: Noncontributory. SOCIAL HISTORY: Denies any smoking or EtOH use. REVIEW OF SYSTEMS: Twelve-point review of systems was obtained. Positive for leg swelling. Positive for some anxiety. Positive for difficulty ambulating. GENERAL: There is a report of dry mouth. GENITOURINARY: Positive as per history of present illness. Denies any diarrhea or constipation. Other systems are negative. PHYSICAL EXAMINATION: GENERAL: The patient is awake and alert. She is seen in her room with her daughter present. She is in no acute distress. VITAL SIGNS: She is afebrile. Temperature 97.8, pulse of 88, BP of 111/77, respirations 20. NECK: Her neck is supple. There is no adenopathy. CHEST: Exam of the chest reveals a normal inspiratory effort. CARDIAC: Showed positive S1, S2. There is 2+ pitting edema of her lower extremities. ABDOMEN: The abdomen is obese, soft, nontender, nondistended. There is no hepatosplenomegaly. There is no costovertebral angle tenderness. Extremities: There is no cyanosis. There is 2+ edema of her lower extremities. LABORATORY EXAM: WBC count normal at 6.4. Creatinine is 2, which is down from 2.7 yesterday with a GFR of 24, lipase 643 from yesterday. Urinalysis 10 to 15 rbc, 10 to 15 wbc, 1 to 3 epithelial cells, negative for nitrites. No urine culture is currently available. On radiologic exam, the patient had a CT scan of the abdomen and pelvis, which showed the kidneys were unremarkable with no hydronephrosis or solid mass. The bladder showed a nonspecific 18 mm right posterolateral bladder soft tissue density, which could not exclude neoplasm. Pancreas is unremarkable with no gross lesion or ductal dilation. IMPRESSION AND PLAN: This is a 73-year-old female with apparent overactive bladder, likely chronic cystitis, recurrent urinary tract infections, possible bladder lesion on CT, and urge incontinence. For now, the plan will be to continue treatment for possible urinary tract infection/cystitis. Continue treatment for the patient's lower extremity edema and evaluation and treatment of the elevated lipase. Urologically the patient will need a cystoscopy to assess the possible bladder lesion. However, the patient is currently anticoagulated secondary to a pulmonary embolus. My recommendation would be to treat any possible infection seen on the culture with antibiotics. I would change the patient's Ditropan 5 mg b.i.d. to Ditropan XL 10 mg once a day, as the patient will get better levels. Unclear why the patient has chronic kidney disease, no lesions were seen on the CT scan. This may be prerenal given the elevated BUN but I would recommend a Nephrology consultation as well. The patient should follow up in my office after discharge. We can plan on a flexible cystoscopy under local while she is continuing on the Coumadin to rule out a bladder tumor. The patient also then can have further workup for overactive bladder and incontinence with an urodynamic assessment, and we can continue further treatment with either medical therapy, or if this is not successful, more advanced treatments for her overactive bladder and incontinence. Thank you for allowing me to participate the care of this patient. I will discuss her with Dr. Guzman regarding the timing of her cystoscopy. Kobe Ventura MD
--- NOTE | 2018-10-04 00:10 | PN ---
DATE: 10/03/2018 SUBJECTIVE: The patient is 73 years old. Seen and examined. Looks much better today. More alert. More communicative. She states she feels better. PHYSICAL EXAMINATION: VITAL SIGNS: She is afebrile, pulse 97, respiration 20, blood pressure 120/72. LUNGS: Bilateral fair airflow. No rhonchi or crackle. HEART: S1 and S2 are audible. ABDOMEN: Soft, obese, nontender. No rebound. No guarding. NEUROLOGIC: She is awake, alert, oriented, communicative. EXTREMITIES: Bilateral legs +2 edema. LABORATORY EXAMINATION: WBC 6.4, hemoglobin 10.6, hematocrit 33.5, platelet 194. Her PT is 21.4, INR 1.84. Chemistry: Sodium 138, potassium 4.3, chloride 104, CO2 of 28, BUN 30, creatinine 2, blood sugar of 112. Lipase 643. Her urine culture positive for gram-negative rods. Sensitivity to follow. ASSESSMENT AND PLAN: 1. Altered mental status. 2. Gram-negative urinary tract infection. 3. History of depression. 4. History of pulmonary embolism. 5. Hypertension. 6. Hyperlipidemia. PLAN: We will continue the patient on current medications. We will continue on IV fluids and follow up her electrolyte in a.m. Currently, she is on Rocephin. We will request for physical therapy evaluation. She is being followed by podiatry team and psychiatrist also. Neo Guzman MD
[2018-10-04 07:03] LABS: INR 1.59; PROTHROMBIN TIME 18.4 SECONDS (9.4-12.5)
[2018-10-04 07:07] LABS: BASO # 0.04 K/mm3 (0.0-2.0); BASO % 0.6 % (0.0-3.0); EOS # 0.3 (0.0-0.7); EOS % 4.7 % (1.5-5.0); GRAN # 4.72 (1.4-6.5); GRAN % 71.9 % (50.0-68.0); HEMOGLOBIN 10.2 g/dL (12.0-16.0); LYMPH # 1.1 (1.2-3.4); LYMPH % 16.5 % (22.0-35.0); MEAN CELL VOLUME 88.1 fl (80.0-105.0); MEAN CORPUSCULAR HEMOGLOBIN 27.6 pg (25.0-35.0); MEAN CORPUSCULAR HGB CONC 31.4 g/dl (31.0-37.0); MEAN PLATELET VOLUME 10.5 fl (7.0-11.0); MONO # 0.4 (0.1-0.6); MONO % 6.3 % (1.0-6.0); RBC 3.69 10^6/uL (3.5-6.1); RED CELL DISTRIBUTION WIDTH 14.4 % (11.5-14.5); WHITE BLOOD COUNT 6.6 10^3/uL (4.5-11.0)
[2018-10-04 07:52] LABS: CALCIUM 8.8 mg/dL (8.4-10.5)
[2018-10-04] MEDS: Dextrose 5%/0.45% NS 1,000 ML IV SCH (10:46)
[2018-10-04] MEDS: Pantoprazole 40 mg EC Tab PO SCH (10:49)
[2018-10-04] MEDS: Metoprolol Succinate 25 mg XL Tab PO SCH (10:50)
[2018-10-04] MEDS: cefTRIAXone 1 gm 1 GM/100 ML BAG IVPB SCH (10:50)
[2018-10-04] MEDS: Ammonium Lactate 12% Cream (140 g) TOP SCH ×2 (10:51→19:40)
[2018-10-04] MEDS ORDERED: cefTRIAXone 1 gm 1 GM/100 ML BAG IVPB SCH (12:45)
[2018-10-04] MEDS ORDERED: Magnesium Citrate Oral SOL (300 ml) PO ONE (13:02)
--- NOTE | 2018-10-04 13:42 | PN ---
DATE: 10/04/2018 SUBJECTIVE: The patient is 73 years old, seen and examined, sitting in chair, seems to be comfortable, looks much more alert, eating little better. PHYSICAL EXAMINATION: VITAL SIGNS: She is afebrile, pulse 89, respirations 20, and blood pressure 131/66. LUNGS: Bilateral fair airflow. No rhonchi or crackle. HEART: S1, S2 audible. ABDOMEN: Soft, obese, nontender. No rebound. No guarding. NEUROLOGIC: The patient is awake, alert, and oriented; able to communicate. LABORATORY DATA: WBC 6.6, hemoglobin 10.2, hematocrit 32.5, and platelets are 192. PT 18.4, INR 1.59. Chemistry; sodium 137, potassium 4.1, chloride 106, CO2 of 27, BUN 26, creatinine 1.7, blood sugar of 109, and lipase 643. Urine is positive for E. coli. ESBL negative. Resistant to Cipro. ASSESSMENT: 1. Escherichia coli urinary tract infection. 2. Urinary incontinence. 3. History of pulmonary embolism. 4. INR is subtherapeutic, I will give her higher dose. Encourage physical therapy. 5. Overactive bladder. 6. History of depression because of recent loss of her . PLAN: We will continue the patient on current antibiotics. I will give her 6 mg of Coumadin today. Her BUN and creatinine is nicely coming down. I will continue IV fluids. We will continue Protonix, continue her on Rocephin. Follow up CMP in a.m. Neo Guzman MD
--- NOTE | 2018-10-04 17:41 | PN ---
DATE: 10/04/2018 SUBJECTIVE: The patient was followed up today. The patient complained of anxiety. Xanax will be increased. Trazodone is for insomnia as well as for depression. The patient complained that she did not sleep that well last night. The patient reported that she has episodes of hopelessness and helplessness, but denied any thoughts of harming herself or others. The patient is not psychotic. PHYSICAL EXAMINATION VITAL SIGNS: Stable. MEDICATIONS: Reviewed. Xanax will be increased. Trazodone will be continued. LABORATORY DATA: Labs reviewed. Microbiology reviewed. MENTAL STATUS EXAMINATION: The patient presented to be alert, somewhat anxious. Intermittent eye contact. Mood described as depressed today. Affect was constricted and tearful. Thought process seems to be coherent and goal directed, but over-inclusive. Thought content, the patient denied visual, auditory or tactile hallucinations. Denied paranoid ideation. The patient denied thoughts of harming herself or others. The patient is not psychotic and does not present to be psychotic. IMPRESSION: Rule out adjustment disorder, rule out major depressive disorder, rule out mood disorder and anxiety disorder due to general medical condition. PLAN: Continue current medication. Xanax was increased to 0.5 mg three times a day as needed for anxiety. Trazodone 50 mg will be continued for depression. Supportive therapy and empathic listening provided. The patient was appreciative. We will follow up and advise accordingly. Should you have any questions, give me a call back. Thank you very much. Domenica Sargent MD MTDD
[2018-10-05] MEDS: Ammonium Lactate 12% Cream (140 g) TOP SCH ×2 (10:20→19:09)
[2018-10-05] MEDS: Pantoprazole 40 mg EC Tab PO SCH (10:21)
[2018-10-05] MEDS: Cefpodoxime (Vantin) 200 mg Tab PO SCH (10:21)
[2018-10-05] MEDS: Metoprolol Succinate 25 mg XL Tab PO SCH (10:23)
--- NOTE | 2018-10-05 20:52 | PN ---
DATE: 10/05/2018 SUBJECTIVE: The patient is 73 years old. Seen and examined. Sitting in chair. Seems to be much more awake and alert. Anxious to go home. PHYSICAL EXAMINATION: VITAL SIGNS: The patient is afebrile, pulse 100, respirations 20, and blood pressure 114/77. LUNGS: Bilateral fair airflow. No rhonchi or crackle. HEART: S1 and S2 audible. ABDOMEN: Soft and nontender. No rebound. No guarding. NEUROLOGICAL: The patient is awake, alert, oriented. Communicative. EXTREMITIES: Bilateral legs, +2 edema. LABORATORY EXAMINATION: There is no new lab available today. ASSESSMENT: 1. Escherichia coli urinary tract infection, sensitive to ceftriaxone. 2. History of pulmonary embolism. 3. Hypertension. PLAN: We will give her 6 mg of Coumadin today. We will follow up PT and INR in a.m. and request for TCU evaluation. Otherwise continue current medications. Discontinue her IV fluids. Follow up her electrolytes in a.m. Neo Guzman MD
--- NOTE | 2018-10-05 21:28 | PN ---
DATE: 10/05/2018 SUBJECTIVE: The patient was followed up today. The patient reported that her anxiety is better controlled with Xanax. The patient reported that she slept better about 5 hours consistently. The patient reported that she still has episodes of depression and hopelessness, but overall the patient presented much better to compare with this admission. The patient adamantly denied any thoughts of harming herself or others. The patient is upset and depressed because of recent loss of her . OBJECTIVE: Vital signs are stable. Temperature 98.6, pulse is 100, blood pressure 114/77, respiration 20, oxygen saturation is 98. Medications reviewed. The patient is on Xanax 0.5 mg three times a day as needed, Norvasc, Lipitor, Vantin, dextrose, alprazolam, Microzide, lactic acid, Cozaar, Protonix, trazodone 50 mg and Coumadin. Labs reviewed, most recent was from yesterday. MENTAL STATUS EXAM: The patient presented to be alert and oriented, pleasant, cooperative, mildly anxious. Mood described as periods of anxiety and depression. Thought process circumstantial, but not tangential. Thought content, the patient denied visual, auditory, or tactile hallucinations. Denied paranoid ideation. The patient denied thoughts of harming herself or others, denied intent or plan. Insight and judgment seems to be fair. Impulses are well controlled. IMPRESSION: Rule out mood disorder and anxiety disorder due to general medical condition, rule out adjustment disorder with depressed and anxious mood. PLAN: Continue current management. Continue current medication, Xanax as needed, trazodone at the nighttime. We will follow up every other day. Next followup on 10/07/2018. The patient's daughter Becki wanted to speak to this investigative writer, but we will call her back at [phone]. Thank you very much for letting me participate in care of your patient. Domenica Sargent MD
[2018-10-05] MEDS: Dextrose 5%/0.45% NS 1,000 ML IV SCH (21:30)
[2018-10-05 22:42] VITALS: RESP 18
[2018-10-06 07:28] LABS: INR 2.58; PROTHROMBIN TIME 30.3 SECONDS (9.4-12.5)
[2018-10-06 07:33] LABS: CALCIUM 8.9 mg/dL (8.4-10.5)
[2018-10-06] MEDS: Dextrose 5%/0.45% NS 1,000 ML IV SCH (10:12)
[2018-10-06] MEDS: Metoprolol Succinate 25 mg XL Tab PO SCH (10:12)
[2018-10-06] MEDS: Pantoprazole 40 mg EC Tab PO SCH (10:13)
[2018-10-06] MEDS: Cefpodoxime (Vantin) 200 mg Tab PO SCH (10:13)
[2018-10-06] MEDS: Ammonium Lactate 12% Cream (140 g) TOP SCH ×2 (10:13→18:17)
--- NOTE | 2018-10-06 18:03 | PN ---
DATE: 10/06/2018 SUBJECTIVE: The patient is a 73-year-old who is seen and examined. She says she is definitely doing better compared to when she came in, she started doing little better. She feels depressed about the loss of her . PHYSICAL EXAMINATION: VITAL SIGNS: She is afebrile, pulse 80, respirations 18, and blood pressure . LUNGS: Bilateral fair airflow. No rhonchi or crackle. HEART: S1 and S2 audible. ABDOMEN: Soft, obese, and nontender. No rebound. No guarding. NEUROLOGIC: She is awake, alert, oriented, and communicative. EXTREMITIES: Moves all extremities. Bilateral leg, no edema. LABORATORY DATA: Sodium 138, potassium 4.1, chloride 105, CO2 of 30, BUN 21, creatinine 1.5, and blood sugar of 102. Urine positive for E. coli, ESBL negative. ASSESSMENT: 1. Status post altered mental status secondary to Escherichia coli urinary tract infection. 2. Renal insufficiency. 3. Hypertension. 4. History of leg deep venous thrombosis. PLAN: Currently, the patient is on Coumadin 6 mg daily. We will continue her on current medications. Continue Norvasc. Discontinue IV fluid. We will check Chem-7 in the morning. If she is trending down, we will make a discharge plan. Neo Guzman MD
--- NOTE | 2018-10-06 19:13 | PN ---
DATE: 10/06/2018 SUBJECTIVE: The patient was followed up today. The patient reported that she slept better. The patient reported that she feels little bit less anxious. The patient reported that her mood is still depressed considering the fact that she lost her less than a couple of weeks ago. The patient reported no suicidal thoughts and reported psychotic symptoms. PHYSICAL EXAMINATION: VITAL SIGNS: Reviewed. MENTAL STATUS EXAM: The patient presented to be alert and oriented, pleasant, cooperative. Good eye contact. Mood described as still depressed. Affect was reactive, mood congruent. Thought process was coherent and goal directed. Thought content, the patient denied visual, auditory, or tactile hallucinations. Denied paranoid ideation. Denied thoughts of harming herself or others. Denied intent or plan. Insight and judgment seems to be improving. Impulses are well controlled. LABORATORY DATA: Reviewed. IMPRESSION: Grief, rule out mood disorder due to general medical condition, rule out anxiety disorder due to general medical condition. PLAN: The patient is on Remeron as well as small dose of Xanax. We will continue that the patient might benefit from grief counseling. Grants Administrator need to be involved and provide information about grief counseling. The patient contracted for safety. The patient adamantly denied any thoughts of harming herself or others. From the psychiatric standpoint, the patient is stable. The patient will be here over the weekend. Please reconsult with this law writer on Tuesday. Meanwhile, the patient is not suicidal, not psychotic, could be safely discharged back home. If the patient's mental status is getting worse, please call Dr. Rios who will be covering over the weekend. Thank you very much for letting me participate in care of your patient. Domenica Sargent MD KAYLYN
[2018-10-07 07:50] VITALS: PULSE 80; TEMP 98.4; O2SAT 95
[2018-10-07 08:27] LABS: ALB/GLOB RATIO 1.1 (1.1-1.8); ALBUMIN 3.2 g/dL (3.0-4.8); CALCIUM 9.2 mg/dL (8.4-10.5)
[2018-10-07] MEDS: Cefpodoxime (Vantin) 200 mg Tab PO SCH (10:17)
[2018-10-07] MEDS: Pantoprazole 40 mg EC Tab PO SCH (10:17)
[2018-10-07] MEDS: Metoprolol Succinate 25 mg XL Tab PO SCH (10:17)
[2018-10-07] MEDS: Ammonium Lactate 12% Cream (140 g) TOP SCH (10:19)
[2018-10-07 10:21] VITALS: BP 116/72
== END 2018-10-07 18:41 | disposition home or self-care (01) | DRG 690 ==
LOC: ED 03:20 → ERH 07:12 → 5RNO 08:46 → OBSVTOIN 10-03 19:29
PROVIDERS: ADMIT Internal Medicine; ATTEND Internal Medicine
DX: N30.20 Other chronic cystitis without hematuria (principal); N17.9 Acute kidney failure, unspecified; N32.81 Overactive bladder; N39.41 Urge incontinence; F32.89 Other specified depressive episodes; F41.9 Anxiety disorder, unspecified; G47.00 Insomnia, unspecified; I12.9 Hypertensive chronic kidney disease with stage 1 through stage 4 chronic kidney disease, or unspecified chronic kidney disease; N18.9 Chronic kidney disease, unspecified; Z79.01 Long term (current) use of anticoagulants; Z79.899 Other long term (current) drug therapy; E86.0 Dehydration; E78.5 Hyperlipidemia, unspecified; E78.00 Pure hypercholesterolemia, unspecified; B96.20 Unspecified Escherichia coli [E. coli] as the cause of diseases classified elsewhere; Z86.711 Personal history of pulmonary embolism; Z86.718 Personal history of other venous thrombosis and embolism; Z86.73 Personal history of transient ischemic attack (TIA), and cerebral infarction without residual deficits; Z87.440 Personal history of urinary (tract) infections; Z90.49 Acquired absence of other specified parts of digestive tract; Z90.710 Acquired absence of both cervix and uterus; F06.30 Mood disorder due to known physiological condition, unspecified

== ENCOUNTER 2019-03-16 20:49 | Inpatient (IN) | payer MEDICARE ==
[2019-03-16 21:16] VITALS: BMI 32.1
--- NOTE | 2019-03-16 22:03 | ED PDOC ---
Arrival/HPI - General Chief Complaint: Shortness Of Breath Time Seen by Provider: 03/16/19 20:55 Historian: Patient, Family (daughter) - History of Present Illness Narrative History of Present Illness (Text): 03/16/19 21:59 A 73 year old female, whose past medical history includes hypertension, PE, DVT, TIA, and hyperlipidemia, who is accompanied by her daughter, presents to the emergency department complaining of lower blood pressure. Per daughter, patient blood pressure has been low at 75/48. Daughter states she took patient to see Dr. Guzman few days ago and was diagnosed with UTI and was given Bactrim antibiotic. Later on, patient began experiencing unsteady gait, and daughter checked patients blood pressure, which was found to be very low each time. Daughter called Dr. Guzman, who advised for patient to drink Gatorade and eat some crackers; noting that if there was no change in her blood pressure levels to have patient be taken to the ER to be evaluated. Patient notes experiencing dysuria from UTI, however denies any abdominal pain, chest pain, dizziness, back pain, hematuria, fever, shakiness, or any other complaints at this time. Also, patients daughter mentions patient stopped taking her Warfarin 2 days ago due to lab results returning, and was instructed to stop taking them for the time being. She notes also patients left leg is more swollen than the right leg. PMD: Dr. Guzman Past Medical History - Provider Review Nursing Documentation Reviewed: Yes Primary Care Provider: Neo Guzman - Infectious Disease Hx of Infectious Diseases: None - Tetanus Immunization Tetanus Immunization: Unknown - Cardiac Hx Hypertension: Yes - Pulmonary Hx Respiratory Disorders: Yes Hx Bronchitis: Yes - Neurological Hx Neurological Disorder: Yes HX Cerebrovascular Accident: Yes (TIA no deficits 8 yrs ago) - HEENT Hx HEENT Disorder: No - Renal Hx Renal Disorder: No - Endocrine/Metabolic Hx Endocrine Disorders: No - Hematological/Oncological Hx Blood Disorders: No - Integumentary Hx Dermatological Disorder: Yes Other/Comment: generalized moles over body, dry skin to both heels left heel hard dry skin, dry skin both feet, dry toenails, stage 1 moisture related red closed wound to right buttocks, buttocks reddened - Musculoskeletal/Rheumatological Hx Arthritis: Yes - Gastrointestinal Hx Gastrointestinal Disorders: Yes (obese) Other/Comment: constipation about 1 month has bm every 2 days not taking any otc laxatives, winds up going on her own, "but it's hard." stated pt - Genitourinary/Gynecological Hx Genitourinary Disorders: Yes Hx Incontinence: Yes Hx Urinary Tract Infection: Yes (uti dx 3 days ago on abx) - Psychiatric Hx Psychophysiologic Disorder: Yes Hx Anxiety: Yes Hx Depression: Yes Hx Substance Use: No - Surgical History Hx Appendectomy: Yes Other/Comment: R arm sx as child - Anesthesia Hx Anesthesia: Yes Hx Anesthesia Reactions: No Family/Social History - Physician Review Nursing Documentation Reviewed: Yes Family/Social History: No Known Family HX Smoking Status: Never Smoked Hx Alcohol Use: No Hx Substance Use: No Allergies/Home Meds Allergies/Adverse Reactions: Allergies No Known Allergies Allergy (Verified 03/16/19 21:09) Home Medications: Home Meds Medication Instructions Recorded Confirmed Atorvastatin [Lipitor] 10 mg PO DAILY 10/02/18 03/16/19 Furosemide [Lasix] 40 mg PO DAILY 10/02/18 03/16/19 Losartan/Hydrochlorothiazide 1 tab PO DAILY 10/02/18 03/16/19 [Hyzaar 100-25 Tablet] Metoprolol Mont[place]/Hydrochlorothiaz 1 tab PO DAILY 10/02/18 03/16/19 [Metoprolol ER-Hctz 25-12.5 mg] Oxybutynin [Ditropan Tab] 5 mg PO DAILY 10/02/18 03/16/19 Pantoprazole [Protonix EC Tab] 40 mg PO DAILY 10/02/18 03/16/19 Potassium Chloride [Klor-Con M10] 10 meq PO DAILY 10/02/18 03/16/19 Warfarin [Coumadin] 3 mg PO DAILY 10/02/18 03/16/19 amLODIPine [Norvasc] 10 mg PO DAILY 10/02/18 03/16/19 hydrALAZINE [Apresoline] 50 mg PO DAILY 10/02/18 03/16/19 traZODone [Desyrel] 50 mg PO DAILY 10/02/18 03/16/19 Review of Systems - Physician Review All systems were reviewed & negative as marked: Yes - Review of Systems Constitutional: absent: Fevers Cardiovascular: absent: Chest Pain Gastrointestinal: absent: Abdominal Pain Genitourinary Female: Dysuria (from UTI). absent: Hematuria Musculoskeletal: Other (left leg is more swollen than right leg). absent: Back Pain Neurological: Gait Changes (unsteady gait). absent: Dizziness Physical Exam - Physical Exam Narrative Physical Exam (Text): Gen: VS reviewed, alert, well developed, well nourished, nontoxic, mild distress Eye: EOMI, PERRL ENT: normal pharynx. Neck: no JVD, supple, no adenopathy CV: regular rate, regular rhythm, no rubs,no murmur, S1, S2 Pulm: no distress, clear to auscultation, no wheeze, no rhonchi, breath sounds equal, no rales Abd: soft, nontender, no guarding, no rebound, no rigidity Ext: no edema Skin: good color, no rash, no cyanosis Psych: responds appropriately to questions, normal affect Neuro: oriented x3, CN2-12 intact grossly, motor intact, sensation intact Vital Signs Reviewed: Yes Vital Signs Temp Pulse Resp BP Pulse Ox 03/16/19 21:09 97.5 F L 77 19 114/77 100 Temperature: Afebrile Blood Pressure: Normal Pulse: Regular Respiratory Rate: Normal Appearance: Positive for: Well-Appearing, Non-Toxic, Comfortable Pain Distress: None Mental Status: Positive for: Alert and Oriented X 3 Medical Decision Making ED Course and Treatment: 03/16/19 22:02 Impression: 73 year old female with unsteady gait and low blood pressure. Plan: -- EKG -- Venous Blood Gas -- Chest X-ray -- Labs -- IV Fluids -- Blood Culture -- Urine Culture -- Urinalysis -- Reassess and disposition Progress Notes: 03/17/19 00:[address] guzman, patient to be admitted for uti and confusion. patient was reported to be hypotensive prior to arrival but maintained good BP during ED course. with elevated inr recommend holding dose of coumadin. patient was started on iv abx admitted to remote tele. - Critical Care Critical Care Minutes: 30 minutes - RAD Interpretation Radiology Orders: 03/16/19 21:55 CHEST PORTABLE [RAD] Stat - EKG Interpretation EKG Interpretation (Text): 03/17/19 06:14 ekg my read: nsr at 79 bpm, nml qrs, nml axis, no acute sttw abn Interpreted by ED Physician: Yes - Medication Orders Current Medication Orders: Sodium Chloride (Sodium Chloride 0.9%) 1,000 mls @ 150 mls/hr IV .[id number] PIERCE - Cristianibe Statement The provider has reviewed the documentation as recorded by the Cristianibdat Boggs All medical record entries made by the Cristianibdat were at my direction and personally dictated by me. I have reviewed the chart and agree that the record accurately reflects my personal performance of the history, physical exam, medical decision making, and the department course for this patient. I have also personally directed, reviewed, and agree with the discharge instructions and disposition. Disposition/Present on Arrival - Present on Arrival Any Indicators Present on Arrival: No History of DVT/PE: No History of Uncontrolled Diabetes: No Urinary Catheter: No History of Decub. Ulcer: No History Surgical Site Infection Following: None - Disposition Have Diagnosis and Disposition been Completed?: Yes Diagnosis: UTI (urinary tract infection), Acute kidney injury Disposition: HOSPITALIZED Disposition Time: 22:25 Patient Plan: Admission Patient Problems: Current Active Problems Problem Status Onset UTI (urinary tract infection) Acute Acute kidney injury Acute Condition: GUARDED
[2019-03-16 22:17] LABS: VENOUS BLOOD GAS PO2 32 mm/Hg (30-55); VENOUS BLOOD PH 7.42 (7.32-7.43)
[2019-03-16 22:36] LABS: BASO # 0.03 K/mm3 (0.0-2.0); BASO % 0.3 % (0.0-3.0); EOS # 0.1 (0.0-0.7); HEMOGLOBIN 9.3 g/dL (12.0-16.0); LYMPH # 1.2 (1.2-3.4); LYMPH % 13.2 % (22.0-35.0); MEAN CELL VOLUME 90.2 fl (80.0-105.0); MEAN CORPUSCULAR HEMOGLOBIN 28.4 pg (25.0-35.0); MEAN CORPUSCULAR HGB CONC 31.4 g/dl (31.0-37.0); MONO # 0.6 (0.1-0.6); MONO % 6.9 % (1.0-6.0); RBC 3.28 10^6/uL (3.5-6.1); RED CELL DISTRIBUTION WIDTH 13.4 % (11.5-14.5); WHITE BLOOD COUNT 9.2 10^3/uL (4.5-11.0)
[2019-03-16] MEDS: Sodium Chloride 0.9% 1,000 ML IV SCH (22:38)
[2019-03-16 22:42] LABS: ALB/GLOB RATIO 1.4 (1.1-1.8); CALCIUM 9.5 mg/dL (8.4-10.5)
[2019-03-16 22:48] LABS: PARTIAL THROMBOPLASTIN TIME 59.3 Seconds (26.9-38.3)
[2019-03-16 23:24] LABS: PROTHROMBIN TIME 68.5 SECONDS (9.4-12.5)
[2019-03-16 23:26] LABS: INR 6.17
[2019-03-16] MEDS ORDERED: cefTRIAXone 1 GM/100 ML BAG IVPB STA (23:30)
[2019-03-17 00:11] LABS: URINE BILIRUBIN NEGATIVE (NEGATIVE); URINE BLOOD LARGE (NEGATIVE); URINE GLUCOSE (UA) NEGATIVE (NEGATIVE); URINE LEUKOCYTE ESTERASE LARGE Leu/uL (NEGATIVE); URINE PROTEIN TRACE mg/dL (<30 mg/dL); URINE UROBILINOGEN 0.2 E.U./dL (<1 E.U./dL)
[2019-03-17 00:20] LABS: URINE APPEARANCE SL CLOUDY (CLEAR); URINE COLOR YELLOW (YELLOW)
[2019-03-17 00:40] LABS: URINE RBC 25 - 30 /hpf (0-2)
[2019-03-17 00:41] LABS: URINE BACTERIA MANY /hpf
--- NOTE | 2019-03-17 08:38 | RAD ---
Date of service: 03/16/2019 HISTORY: cough,?pneumonia COMPARISON: 08/29/2017 TECHNIQUE: 1 view obtained. FINDINGS: LUNGS: No active pulmonary disease. PLEURA: No significant pleural effusion identified, no pneumothorax apparent. CARDIOVASCULAR: No aortic atherosclerotic calcification present. Normal cardiac size. No pulmonary vascular congestion. OSSEOUS STRUCTURES: No significant abnormalities. VISUALIZED UPPER ABDOMEN: Normal. OTHER FINDINGS: None. IMPRESSION: No active disease.
--- NOTE | 2019-03-17 09:10 | CON ---
DATE OF CONSULTATION: 03/17/2019 CHIEF COMPLAINT: Urinary symptoms and hypotension at home times several days. HISTORY OF PRESENT ILLNESS: This is a 73-year-old female, whose past medical history includes PE, DVT, TIA, hyperlipidemia. Her daughter brought the patient to the emergency room and was diagnosed with urinary tract infection as an outpatient and was given Bactrim. The patient's symptoms did not improve. The patient continues to become weaker and having dysuria and frequency at home. No abdominal pain, no flank pain, and no fevers at home. Hypotension. REVIEW OF SYSTEMS: Reveals a 12-point review of systems performed. PAST MEDICAL HISTORY: Significant for PE, DVT, TIA, hyperlipidemia, arthritis, anxiety, and depression. PAST SURGICAL HISTORY: Significant for she states she had surgery as a child, appendectomy, and she does not remember what age, it may have been as an adult. PHYSICAL EXAMINATION: VITAL SIGNS: Temperature is 98, blood pressure is 107/52, respiratory rate of 18, heart rate of 73. HEENT: Examination of HEENT is unremarkable. NECK: Supple. LUNGS: Have decreased breath sounds. HEART: Revealed normal S1, S2. ABDOMEN: Soft, nontender. No rebound, no guarding, no masses. LABORATORY DATA: Laboratory examination reveals a white count of 9.2, hemoglobin of 9, platelets of 235. Coagulation is noted and chemistries reveals a creatinine of 4.5, which is new. Her last creatinine was 1.4. Urinalysis is significant for many bacteria and wbc's. Review of orders reveals the patient is on ceftriaxone. ASSESSMENT AND PLAN: A 73-year-old female with pulmonary emboli, deep venous thrombosis, transient ischemic attack, hyperlipidemia, anxiety, and depression, failed as outpatient for urinary tract infection with Bactrim, now presented with urinary tract infection with acute kidney injury with a change in creatinine from 1.4-4.5. We will order a renal ultrasound and change the ceftriaxone to Maxipime 1 g IV and check on the urine cultures and blood cultures. I will recommend a Renal consultation. We will follow closely with you. Abdifatah Judd MD
[2019-03-17] MEDS: Cefepime 1gm in NS 100ml 1 GM/100 ML BAG IVPB SCH (09:59)
[2019-03-17] MEDS ORDERED: cefTRIAXone 1 gm 1 GM/100 ML BAG IVPB SCH (10:00)
[2019-03-17] MEDS: Sodium Chloride 0.9% 1,000 ML IV SCH (12:00)
--- NOTE | 2019-03-17 15:15 | US ---
Date of service: 03/17/2019 HISTORY: renal failure COMPARISON: None. TECHNIQUE: Sonographic evaluation of the abdomen. FINDINGS: LIVER: Measures 14.0 cm. Patent portal and hepatic venous systems. Hepatopedal blood flow. Fatty infiltration manifest ultrasonographically as increased echogenicity of the liver parenchyma. No mass. No intrahepatic bile duct dilatation. GALLBLADDER: Unremarkable. No gallstones. COMMON BILE DUCT: Measures 0.2 mm. No stones. No dilatation. PANCREAS: Obscured by overlying bowel gas. Non diagnostic assessment of the the pancreas. RIGHT KIDNEY: Measures 4.4 x 9.8cm. Increased echogenicity, thinning of renal cortex consistent with medical renal disease. Incidental finding(s): 2 small cysts midpole region neither larger than 1.2 cm. LEFT KIDNEY: Measures 5.4 x 9.3cm. Increased echogenicity, thinning of renal cortex consistent with medical renal disease. 4 mm echogenic focus mid pole region consistent with nonobstructing calculus. SPLEEN: Normal in size and contour. No mass. AORTA: No aneurysmal dilatation. IVC: Unremarkable. OTHER FINDINGS: None. IMPRESSION: Medical renal disease, renal cortical atrophy bilaterally. No evidence of obstructive uropathy. Nonobstructing 4 mm calculus left kidney.
--- NOTE | 2019-03-17 15:48 | CARD ---
APPROVED REPORT Date of service: 03/16/2019 EKG Measurement Heart [id number] <Conclusion> Normal sinus rhythm Baseline artifact Otherwise normal ECG
[2019-03-17 17:25] LABS: BASO # 0.02 K/mm3 (0.0-2.0); BASO % 0.2 % (0.0-3.0); EOS # 0.1 (0.0-0.7); EOS % 1.1 % (1.5-5.0); HEMOGLOBIN 8.8 g/dL (12.0-16.0); LYMPH # 1.2 (1.2-3.4); LYMPH % 13.3 % (22.0-35.0); MEAN CELL VOLUME 90.3 fl (80.0-105.0); MEAN CORPUSCULAR HEMOGLOBIN 28.5 pg (25.0-35.0); MEAN CORPUSCULAR HGB CONC 31.5 g/dl (31.0-37.0); MONO # 0.6 (0.1-0.6); MONO % 6.4 % (1.0-6.0); RBC 3.09 10^6/uL (3.5-6.1); RED CELL DISTRIBUTION WIDTH 13.2 % (11.5-14.5); WHITE BLOOD COUNT 8.9 10^3/uL (4.5-11.0)
--- NOTE | 2019-03-17 17:39 | CP.PCM.CON ---
<Moses Shankar - Last Filed: 03/17/19 17:42> History of Present Illness - History of Present Illness History of Present Illness: Moses Shankar, PGY-1 Consult Note for ICU CC: Hypotension HPI: Ms. Ramirez is a 73 F with PMHx of hypertension, PE, DVT, TIA, and hyperlipidemia who was admitted for lethargy and UTI. Patient was on the floor when ICU was called to come evaluate the patient due to hypotension of 74/55 bilaterally. Patient's daughter is at bedside, and states that she has noticed some intermittent disorientation in the patient after developing the UTI. Daughter states that patient snores loudly, and is concerned about the possibility of sleep apnea. Daughter is unaware of any times at night in which paptient stops breathing. Patient states that she currently has no shortness of breath, chest pain, palpitations, headaches, dizziness, recent travel, blurry vision or disorientation. Of note back in 2017, an echo revealed EF 63% with severe pulm HTN with RVSP 99. Upon looking at monitor during interaction, blood pressure read 109/72. PMHx: Hypertension, PE, DVT, TIA, and hyperlipidemia PSHx: Appendectomy, R arm Allergies: NKDA Fam Hx: Noncontributory Meds: as per EMR Review of Systems - Review of Systems Review of Systems: 12 point ROS completed and negative except as described in HPI. Past Patient History - Infectious Disease Hx of Infectious Diseases: None - Tetanus Immunizations Tetanus Immunization: Unknown - Past Social History Smoking Status: Never Smoked - CARDIAC Hx Hypertension: Yes - PULMONARY Hx Respiratory Disorders: Yes Hx Bronchitis: Yes - NEUROLOGICAL Hx Neurological Disorder: Yes HX Cerebrovascular Accident: Yes (TIA no deficits 8 yrs ago) - HEENT Hx HEENT Problems: No - RENAL Hx Chronic Kidney Disease: No - ENDOCRINE/METABOLIC Hx Endocrine Disorders: No - HEMATOLOGICAL/ONCOLOGICAL Hx Blood Disorders: No - INTEGUMENTARY Hx Dermatological Problems: Yes Other/Comment: generalized moles over body, dry skin to both heels left heel hard dry skin, dry skin both feet, dry toenails, stage 1 moisture related red closed wound to right buttocks, buttocks reddened - MUSCULOSKELETAL/RHEUMATOLOGICAL Hx Arthritis: Yes - GASTROINTESTINAL Hx Gastrointestinal Disorders: Yes (obese) Other/Comment: constipation about 1 month has bm every 2 days not taking any otc laxatives, winds up going on her own, "but it's hard." stated pt - GENITOURINARY/GYNECOLOGICAL Hx Genitourinary Disorders: Yes Hx Incontinence: Yes Hx Urinary Tract Infection: Yes (uti dx 3 days ago on abx) - PSYCHIATRIC Hx Psychophysiologic Disorder: Yes Hx Anxiety: Yes Hx Depression: Yes Hx Substance Use: No - SURGICAL HISTORY Hx Appendectomy: Yes Other/Comment: R arm sx as child - ANESTHESIA Hx Anesthesia: Yes Hx Anesthesia Reactions: No Meds Allergies/Adverse Reactions: Allergies Allergy/AdvReac Type Severity Reaction Status Date / Time No Known Allergies Allergy Verified 03/16/19 21:09 - Medications Medications: Current Medications Acetaminophen (Tylenol 325mg Tab) 650 mg PO Q6H PRN PRN Reason: Fever >100.4 F Sodium Chloride (Sodium Chloride 0.9%) 1,000 mls @ 150 mls/hr IV .Q6H40M [facility] Last Admin: 03/17/19 12:00 Dose: 150 mls/hr Cefepime HCl (Maxipime 1gm) 1 gm in 100 mls @ 100 mls/hr IVPB Q24H [facility]; Protocol Stop: 03/24/19 08:31 Last Admin: 03/17/19 09:59 Dose: 100 mls/hr Ondansetron HCl (Zofran Inj) 4 mg IVP Q6H PRN PRN Reason: Nausea/Vomiting Physical Exam - Constitutional Appears: Well, Non-toxic, No Acute Distress - Head Exam Head Exam: ATRAUMATIC, NORMAL INSPECTION, NORMOCEPHALIC - Eye Exam Eye Exam: EOMI Pupil Exam: PERRL - ENT Exam ENT Exam: Mucous Membranes Moist - Neck Exam Neck exam: Positive for: Full Rom - Respiratory Exam Respiratory Exam: Decreased Breath Sounds, Clear to Auscultation Bilateral, NORMAL BREATHING PATTERN. absent: Rales, Rhonchi, Wheezes, Respiratory Distress, Stridor - Cardiovascular Exam Cardiovascular Exam: RRR, +S1, +S2 - GI/Abdominal Exam GI & Abdominal Exam: Normal Bowel Sounds, Soft. absent: Rebound, Rigid, Tenderness - Extremities Exam Extremities exam: Positive for: pedal edema (1+) - Back Exam Additional comments: many keratosies of various sizes - Neurological Exam Neurological exam: Alert, Oriented x3 Results - Vital Signs Recent Vital Signs: Last Vital Signs Temp 97.9 F 03/17/19 08:29 Pulse 61 03/17/19 14:00 Resp 18 03/17/19 08:29 BP 109/72 03/17/19 10:50 Pulse Ox 97 03/17/19 08:29 - Labs Result Diagrams: 03/17/19 17:10 03/17/19 17:10 Labs: Laboratory Results - last 24 hr 03/16/19 03/16/19 03/16/19 22:00 22:25 22:25 WBC 9.2 D RBC 3.28 L Hgb 9.3 L Hct 29.6 L MCV 90.2 MCH 28.4 MCHC 31.4 RDW 13.4 Plt Count 235 MPV 11.0 Neut % (Auto) 78.6 H Lymph % (Auto) 13.2 L Screven % (Auto) 6.9 H Eos % (Auto) 1.0 L Baso % (Auto) 0.3 Lymph # (Auto) 1.2 Screven # (Auto) 0.6 Eos # (Auto) 0.1 Baso # (Auto) 0.03 Absolute Neuts (auto) 7.20 H PT INR APTT pO2 32 VBG pH 7.42 VBG pCO2 45.0 VBG HCO3 29.2 H VBG Total CO2 30.6 H VBG O2 Sat (Calc) 66.6 H VBG Base Excess 4.0 H VBG Potassium 4.0 Sodium 133.0 137 Chloride 98.0 95 L Glucose 93 Lactate 1.8 FiO2 21.0 Crit Value Called To Benji hobbs rn Crit Value Called By Jono Blood Gas Notified Time 2215 Potassium 3.7 Carbon Dioxide 29 Anion Gap 17 BUN 55 H Creatinine 4.5 H Est GFR ( Amer) 12 Est GFR (Non-Af Amer) 10 Random Glucose 100 Calcium 9.5 Magnesium 2.1 Total Bilirubin 0.3 AST 28 ALT 26 Alkaline Phosphatase 50 Total Protein 6.9 Albumin 4.0 Globulin 2.9 Albumin/Globulin Ratio 1.4 Venous Blood Potassium 4.0 Urine Color Urine Appearance Urine pH Ur Specific Clarence Urine Protein Urine Glucose (UA) Urine Ketones Urine Blood Urine Nitrate Urine Bilirubin Urine Urobilinogen Ur Leukocyte Esterase Urine RBC Urine WBC Ur Epithelial Cells Urine Bacteria Alcohol, Quantitative 03/16/19 03/16/19 03/16/19 22:25 22:25 23:55 WBC RBC Hgb Hct MCV MCH MCHC RDW Plt Count MPV Neut % (Auto) Lymph % (Auto) Screven % (Auto) Eos % (Auto) Baso % (Auto) Lymph # (Auto) Screven # (Auto) Eos # (Auto) Baso # (Auto) Absolute Neuts (auto) PT 68.5 H INR 6.17 H* APTT 59.3 H pO2 VBG pH VBG pCO2 VBG HCO3 VBG Total CO2 VBG O2 Sat (Calc) VBG Base Excess VBG Potassium Sodium Chloride Glucose Lactate FiO2 Crit Value Called To Crit Value Called By Blood Gas Notified Time Potassium Carbon Dioxide Anion Gap BUN Creatinine Est GFR ( Amer) Est GFR (Non-Af Amer) Random Glucose Calcium Magnesium Total Bilirubin AST ALT Alkaline Phosphatase Total Protein Albumin Globulin Albumin/Globulin Ratio Venous Blood Potassium Urine Color Yellow Urine Appearance Sl cloudy Urine pH 7.0 Ur Specific Clarence 1.015 Urine Protein Trace H Urine Glucose (UA) Negative Urine Ketones Negative Urine Blood Large H Urine Nitrate Negative Urine Bilirubin Negative Urine Urobilinogen 0.2 Ur Leukocyte Esterase Large H Urine RBC 25 - 30 H Urine WBC 10 - 15 H Ur Epithelial Cells 3 - 4 Urine Bacteria Many Alcohol, Quantitative < 10 03/17/ 17:10 WBC 8.9 RBC 3.09 L Hgb 8.8 L Hct 27.9 L MCV 90.3 MCH 28.5 MCHC 31.5 RDW 13.2 Plt Count 191 MPV 10.0 Neut % (Auto) 79.0 H Lymph % (Auto) 13.3 L Screven % (Auto) 6.4 H Eos % (Auto) 1.1 L Baso % (Auto) 0.2 Lymph # (Auto) 1.2 Screven # (Auto) 0.6 Eos # (Auto) 0.1 Baso # (Auto) 0.02 Absolute Neuts (auto) 7.02 H PT INR APTT pO2 VBG pH VBG pCO2 VBG HCO3 VBG Total CO2 VBG O2 Sat (Calc) VBG Base Excess VBG Potassium Sodium Chloride Glucose Lactate FiO2 Crit Value Called To Crit Value Called By Blood Gas Notified Time Potassium Carbon Dioxide Anion Gap BUN Creatinine Est GFR ( Amer) Est GFR (Non-Af Amer) Random Glucose Calcium Magnesium Total Bilirubin AST ALT Alkaline Phosphatase Total Protein Albumin Globulin Albumin/Globulin Ratio Venous Blood Potassium Urine Color Urine Appearance Urine pH Ur Specific Clarence Urine Protein Urine Glucose (UA) Urine Ketones Urine Blood Urine Nitrate Urine Bilirubin Urine Urobilinogen Ur Leukocyte Esterase Urine RBC Urine WBC Ur Epithelial Cells Urine Bacteria Alcohol, Quantitative Assessment & Plan - Assessment and Plan (Free Text) Assessment: Ms. Ramirez is a 73 year old female, whose past medical history includes hypertension, PE, DVT, TIA, and hyperlipidemia. Pulmonary/ICU team was called due to concern from asymptomatic hypotension. Upon presentation, patient was hemodynamically stable, in no acute respiratory or general distress, sitting up comfortably in bed. O2 saturation was 97% on RA, HR was 77, and BP was 109/72. Recommend: -Repeat CBC, CMP -250 mL bolus of LR, to be followed by maintenance LR @ 150 cc/hr. -O2 Nasal cannula PRN -Close BP monitoring q2h -outpatient sleep study to evaluate for likely DOMINGO Should systolic BP readings below 80 persist, please notify the ICU team for re- evaluation. Patient is not currently a candidate for ICU admission. Patient seen, case reviewed and plan approved by Dr. Daljit Salgado. Moses Shankar, PGY-1 <Yonatan Salgado - Last Filed: 03/18/19 08:24> Meds - Medications Medications: Current Medications Acetaminophen (Tylenol 325mg Tab) 650 mg PO Q6H PRN PRN Reason: Fever >100.4 F Sodium Chloride (Sodium Chloride 0.9%) 1,000 mls @ 150 mls/hr IV .Q6H40M [facility] Last Admin: 03/18/19 01:19 Dose: 150 mls/hr Cefepime HCl (Maxipime 1gm) 1 gm in 100 mls @ 100 mls/hr IVPB Q24H [facility]; Protocol Stop: 03/24/19 08:31 Last Admin: 03/17/19 09:59 Dose: 100 mls/hr Ondansetron HCl (Zofran Inj) 4 mg IVP Q6H PRN PRN Reason: Nausea/Vomiting Results - Vital Signs Recent Vital Signs: Last Vital Signs Temp 98.1 F 03/18/19 08:17 Pulse 88 03/18/19 08:17 Resp 20 03/18/19 08:17 BP 96/57 L 03/18/19 08:17 Pulse Ox 93 L 03/18/19 08:17 - Labs Result Diagrams: 03/18/19 05:00 03/18/19 05:00 Labs: Laboratory Results - last 24 hr 03/17/19 03/17/19 03/17/19 17:10 17:10 17:10 WBC 8.9 RBC 3.09 L Hgb 8.8 L Hct 27.9 L MCV 90.3 MCH 28.5 MCHC 31.5 RDW 13.2 Plt Count 191 MPV 10.0 Neut % (Auto) 79.0 H Lymph % (Auto) 13.3 L Screven % (Auto) 6.4 H Eos % (Auto) 1.1 L Baso % (Auto) 0.2 Lymph # (Auto) 1.2 Screven # (Auto) 0.6 Eos # (Auto) 0.1 Baso # (Auto) 0.02 Absolute Neuts (auto) 7.02 H PT INR Sodium 138 Potassium 3.8 Chloride 104 Carbon Dioxide 25 Anion Gap 13 BUN 41 H Creatinine 3.2 H Est GFR ( Amer) 17 Est GFR (Non-Af Amer) 14 Random Glucose 134 H Calcium 8.7 Total Bilirubin 0.2 AST 18 ALT 28 Alkaline Phosphatase 44 Troponin I 0.01 Total Protein 5.7 L Albumin 3.1 Globulin 2.6 Albumin/Globulin Ratio 1.2 Procalcitonin 0.18 L 03/18/19 03/18/19 03/18/19 05:00 05:00 05:00 WBC 7.5 RBC 3.11 L Hgb 8.8 L Hct 28.1 L MCV 90.4 MCH 28.3 MCHC 31.3 RDW 13.3 Plt Count 184 MPV 10.3 Neut % (Auto) 79.4 H Lymph % (Auto) 13.8 L Screven % (Auto) 4.5 Eos % (Auto) 2.0 Baso % (Auto) 0.3 Lymph # (Auto) 1.0 L Screven # (Auto) 0.3 Eos # (Auto) 0.2 Baso # (Auto) 0.02 Absolute Neuts (auto) 5.96 PT 47.8 H INR 4.23 H* Sodium 141 Potassium 4.6 Chloride 106 Carbon Dioxide 27 Anion Gap 12 BUN 34 H Creatinine 2.4 H Est GFR ( Amer) 24 Est GFR (Non-Af Amer) 20 Random Glucose 94 Calcium 8.6 Total Bilirubin 0.5 AST 25 ALT 19 Alkaline Phosphatase 37 L Troponin I Total Protein 5.9 Albumin 3.1 Globulin 2.8 Albumin/Globulin Ratio 1.1 Procalcitonin Addendum Addendum: MICU Attending addendum Patient seen and examined with housestaff on 03/17 Agree with resident note above with the follow add/exceptions 73 F were asked to evaluate for hypotension in the setting of UTI. Her past medical history includes hypertension, PE, DVT, TIA, and hyperlipidemia. Admitted with low BP which responded to fluids. Found to have UTI being tx with abx. BP dropped to SBP 74 when I was called. After gentle fluids, during my eval SBP was 109. Patient was comfortable, pleasant and NAD. Not tachycardic at HR 77 and O2 saturation 97% on RA Caution for septic shock Not in shock at the moment Cont IV fluids and give 30cc/kg NS trend lac Cont abx Pt also has DOMINIC, repeat chem shows improving Cr and she has good urine output Cont to monitor BUN CR and I/O Supratherpeutic INR noted, HB stable, no signs of bleeding Will not transfer to ICU at this time however if she becomes unstable or symptomatic please recall ICU. Rest of care as per above resident note Yonatan Salgado MD MICU Attending
[2019-03-17 17:42] LABS: ALB/GLOB RATIO 1.2 (1.1-1.8); ALBUMIN 3.1 g/dL (3.0-4.8); CALCIUM 8.7 mg/dL (8.4-10.5)
[2019-03-17 17:43] LABS: TROPONIN I 0.01 ng/mL
--- NOTE | 2019-03-17 18:47 | HP ---
DATE OF EXAM: 03/17/2019 HISTORY OF PRESENT ILLNESS: The patient is 73 years old, seen and examined. The patient was seen in my office last week. She was being treated for UTI. She has been on Cipro. Yesterday evening, I got a call from daughter that her blood pressure is running low, it was 80/60 at home. She was advised to give p.o. fluid, and if the patient does not come up, she should come to emergency room. She was complaining of feeling weak and dizzy, so last night, she was brought to emergency room for further evaluation. She was found to be hypotensive and being treated with IV antibiotic and was admitted on the floor for further management. Denies any fever or chills at home. No abdominal pain. No nausea or vomiting. No diarrhea. Only has generalized weakness. PAST MEDICAL HISTORY: She has past medical history significant for: 1. TIA 10 years ago. 2. Hypertension. 3. Hyperlipidemia. 4. Recurrent UTI. 5. History of DVT, currently on Coumadin. ALLERGIES: SHE IS NOT ALLERGIC TO ANY MEDICATION. MEDICATIONS AT HOME: She is trazodone 50 mg at bedtime, hydralazine 50 mg twice a day, amlodipine 10 mg daily, Coumadin 3 mg daily, Protonix 40 mg daily, oxybutynin 5 mg daily, metoprolol 50 mg daily, losartan 100 mg daily, Lasix 40 mg daily, and atorvastatin 10 mg daily. SOCIAL HISTORY: She lives with her daughter. Denies smoking, drinking, or alcohol use. PHYSICAL EXAMINATION: GENERAL: She is awake and alert, able to communicate. VITAL SIGNS: She is afebrile. Pulse 79, respirations 18, blood pressure 109/72. LUNGS: Bilateral fair airflow. No rhonchi or crackles. HEART: S1 and S2 audible. ABDOMEN: Soft and nontender. No rebound. No guarding. NEUROLOGIC: The patient is awake and alert, able to communicate. EXTREMITIES: Bilateral legs, +1 edema. LABORATORY DATA: WBC is 9.2, hemoglobin 9.3, hematocrit 29.6, platelets of 235. PT 68.5, INR 6.17. Chemistry; sodium 137, potassium 3.7, chloride 95, CO2 of 29, BUN 55, creatinine 4.5, blood sugar of 100. Urine shows large blood and large leukocyte. Alcohol level is negative. ASSESSMENT: 1. Hypotension. 2. Acute renal failure. 3. Escherichia coli urinary tract infection. PLAN: Currently, the patient is on cefepime. She was given Rocephin in the ER. She is on IV fluid. We will hold off her Coumadin and all her p.o. antihypertensives. I will follow up urine culture and I will follow up CBC and CMP in a.m., follow up PT/INR in a.m. Neo Guzman MD
[2019-03-18] MEDS: Sodium Chloride 0.9% 1,000 ML IV SCH ×2 (01:19→09:52)
[2019-03-18 06:49] LABS: BASO # 0.02 K/mm3 (0.0-2.0); BASO % 0.3 % (0.0-3.0); EOS # 0.2 (0.0-0.7); HEMOGLOBIN 8.8 g/dL (12.0-16.0); LYMPH % 13.8 % (22.0-35.0); MEAN CELL VOLUME 90.4 fl (80.0-105.0); MEAN CORPUSCULAR HEMOGLOBIN 28.3 pg (25.0-35.0); MEAN CORPUSCULAR HGB CONC 31.3 g/dl (31.0-37.0); MEAN PLATELET VOLUME 10.3 fl (7.0-11.0); MONO # 0.3 (0.1-0.6); MONO % 4.5 % (1.0-6.0); RBC 3.11 10^6/uL (3.5-6.1); RED CELL DISTRIBUTION WIDTH 13.3 % (11.5-14.5); WHITE BLOOD COUNT 7.5 10^3/uL (4.5-11.0)
[2019-03-18 07:02] LABS: PROTHROMBIN TIME 47.8 SECONDS (9.4-12.5)
[2019-03-18 07:06] LABS: INR 4.23
[2019-03-18 07:58] LABS: ALB/GLOB RATIO 1.1 (1.1-1.8); ALBUMIN 3.1 g/dL (3.0-4.8); CALCIUM 8.6 mg/dL (8.4-10.5)
[2019-03-18] MEDS: Cefepime 1gm in NS 100ml 1 GM/100 ML BAG IVPB SCH (09:52)
--- NOTE | 2019-03-18 10:46 | PN ---
DATE: 03/18/2019 SUBJECTIVE: The patient is in bed in no acute distress. She states her urinary symptoms are much improved. Overall, she is doing much better. PHYSICAL EXAMINATION VITAL SIGNS: Temperature is 98, blood pressure is 100/60, respiratory rate of 18, heart rate of 88. HEENT: Unremarkable. NECK: Supple. LUNGS: Have decreased breath sounds. HEART: Normal S1, S2. ABDOMEN: Soft, nontender. LABORATORY EXAMINATION: Reveals the patient's white count of 7.5, hemoglobin of 8, platelets of 184, BUN of 34. Creatinine is improving at 2.4. Procalcitonin 0.18. Urinalysis is noted and toxicology is reviewed. Microbiology reveals the blood cultures are no growth at 24 hours and urine cultures are still pending. MEDICATIONS: Review of orders reveals the patient is on cefepime. ASSESSMENT AND PLAN: This is a 73-year-old female who is admitted with urinary tract infection with acute kidney injury. The patient was on Bactrim as outpatient and the patient is currently on Maxipime on day #2. Pending urine culture and renal function appears to be improving. No obstructive evidence of obstructive disease. Dr. Yonatan Salgado's note is reviewed. He says the patient had a hypotension, the blood pressure is 74. We will follow with you. Abdifatah Judd MD
[2019-03-18] MEDS: POLYETHYLENE GLYCOL 3350 17 GM/Dose PACKET PO SCH (10:56)
--- NOTE | 2019-03-18 13:54 | PN ---
DATE: 03/18/2019 SUBJECTIVE: The patient is 73 years old, seen and examined, lying in bed, seemed to be comfortable, complains of constipation. Otherwise doing better, eating and tolerating. No headache. No nausea or vomiting. No diarrhea. PHYSICAL EXAMINATION: VITAL SIGNS: The patient is afebrile. Pulse 95, respirations 20, and blood pressure 96/57. LUNGS: Bilateral fair airflow. No rhonchi or crackles. HEART: S1 and S2 audible. ABDOMEN: Soft and nontender. No rebound. No guarding. NEUROLOGIC: The patient is awake and alert, able to communicate. LABORATORY DATA: WBC 7.5, hemoglobin 8.8, hematocrit 28.1 and platelets 184. PT 47.8 and INR 4.23. Chemistry; sodium 141, potassium 4.6, chloride 106, CO2 of 27, BUN 34, creatinine 2.4, and blood sugar of 94. Procalcitonin 0.18. Blood cultures are negative. Urine culture is pending. ASSESSMENT: 1. Urinary tract infection was treated as outpatient, but the patient is running hypotensive, etiology unclear. Although, she carries a diagnosis of hypertension. 2. Acute kidney injury, probably secondary to dehydration. 3. History of leg deep venous thrombosis, on Coumadin, has been on hold for now because of supratherapeutic INR. PLAN: We will continue the patient on cefepime. She is on MiraLax. Continue on IV fluid. Follow up her CBC, CMP and PT/INR in a.m. Neo Guzman MD
[2019-03-19 07:06] LABS: INR 3.05; PROTHROMBIN TIME 34.5 SECONDS (9.4-12.5)
[2019-03-19 07:08] LABS: BASO # 0.03 K/mm3 (0.0-2.0); BASO % 0.5 % (0.0-3.0); EOS # 0.1 (0.0-0.7); EOS % 2.4 % (1.5-5.0); LYMPH % 17.8 % (22.0-35.0); MEAN CORPUSCULAR HEMOGLOBIN 28.2 pg (25.0-35.0); MEAN CORPUSCULAR HGB CONC 31.4 g/dl (31.0-37.0); MEAN PLATELET VOLUME 10.7 fl (7.0-11.0); MONO # 0.4 (0.1-0.6); MONO % 6.2 % (1.0-6.0); RBC 3.19 10^6/uL (3.5-6.1); WHITE BLOOD COUNT 5.8 10^3/uL (4.5-11.0)
[2019-03-19 07:14] LABS: ALB/GLOB RATIO 1.1 (1.1-1.8); CALCIUM 8.8 mg/dL (8.4-10.5)
[2019-03-19] MEDS: Cefepime 1gm in NS 100ml 1 GM/100 ML BAG IVPB SCH (08:48)
[2019-03-19] MEDS: Sodium Chloride 0.9% 1,000 ML IV SCH ×2 (10:00→21:00)
[2019-03-19] MEDS: POLYETHYLENE GLYCOL 3350 17 GM/Dose PACKET PO SCH (10:21)
--- NOTE | 2019-03-19 11:09 | US ---
HISTORY: Leg pain and swelling. Evaluate for DVT PHYSICIAN(S): Greg Cardenas MD. TECHNIQUE: Duplex sonography and color-flow Doppler with graded compression were used to evaluate the deep venous systems of both lower extremities. FINDINGS: The visualized deep venous systems of both lower extremities are sonographically normal and compressible. Normal wave forms and augmentation are seen. There is no sonographic evidence for deep venous thrombosis in the visualized segments of both lower extremities. IMPRESSION: No sonographic evidence for deep venous thrombosis in the visualized segments of both lower extremities.
--- NOTE | 2019-03-19 14:35 | PN ---
DATE: 03/19/2019 SUBJECTIVE: The patient is 73 years old, seen and examined, doing much better. No nausea or vomiting, no diarrhea. PHYSICAL EXAMINATION: VITAL SIGNS: The patient is afebrile. Pulse 87, respirations 20, blood pressure 117/73. LUNGS: Bilateral fair airflow. No rhonchi or crackles. HEART: S1 and S2 audible. ABDOMEN: Soft, obese, nontender. No rebound. No guarding. NEUROLOGIC: She is awake and alert, able to communicate. LABORATORY DATA: WBC is 5.8, hemoglobin 9.0, hematocrit 28.7, platelets 187. PT 34.5 and INR 3.05. Chemistry; sodium 143, potassium 4. , chloride 111, CO2 of 25, BUN 19, creatinine 1.7, blood sugar 158. Her urine culture came out positive for Proteus mirabilis. Blood cultures are negative. ASSESSMENT: 1. Proteus mirabilis urinary tract infection. 2. Status post urosepsis, has been running hypotensive. 3. History of cerebrovascular accident in the past. 4. History of deep venous thrombosis, currently on Coumadin. 5. Renal insufficiency, improving. PLAN: We will continue to hold her blood pressure medications. She is on Lipitor, cefepime, and IV fluid, we will cut down from 150 to 100 mL/hour and request for TCU evaluation to complete her course of antibiotics as recommended by ID. Neo Guzman MD
[2019-03-19] MEDS: Meropenem IV 1 gm in NS 1 GM/50 ML BAG IVPB SCH (17:21)
--- NOTE | 2019-03-19 21:20 | PN ---
DATE: 03/19/2019 SUBJECTIVE: The patient is in bed in no acute distress, nontoxic. PHYSICAL EXAMINATION VITAL SIGNS: Temperature is 98, blood pressure is 117/70, respiratory rate of 20, heart rate of 87. HEENT: Unremarkable. NECK: Supple. LUNGS: Have decreased breath sounds. HEART: Normal S1, S2. ABDOMEN: Soft. LABORATORY EXAMINATION: Reveals the patient's white count is 5.8, hemoglobin of 9. BUN of 19, creatinine of 1.7. Procalcitonin is 1.18. Microbiology reveals the urine has Proteus sensitive to meropenem, ertapenem, Zosyn, amikacin and otherwise resistant. REVIEW OF ORDERS: Reveals the patient to be on cefepime. ASSESSMENT AND PLAN: A 73-year-old female who was seen earlier today in room 370, bed 1, admitted now with Proteus urinary tract infection, acute kidney injury. The patient was on Bactrim as outpatient, now has resistant Proteus, and appears to be improving. Symptomatic resistant Proteus urinary tract infection with acute kidney injury in a patient with history of pulmonary emboli, deep venous thrombosis, transient ischemic attack, hyperlipidemia, anxiety who states that she still continues to have urinary symptoms. We will switch to meropenem. No p.o. options. Discontinue the cefepime. Dr. Guzman's note is reviewed. The patient did have an episode of hypotension. We will follow with you. Most likely will need 5 to 7 days of meropenem, today is day #1. Abdifatah Judd MD
[2019-03-20] MEDS: POLYETHYLENE GLYCOL 3350 17 GM/Dose PACKET PO SCH ×2 (09:34→09:36)
[2019-03-20] MEDS: Meropenem IV 1 gm in NS 1 GM/50 ML BAG IVPB SCH ×2 (09:34→22:03)
--- NOTE | 2019-03-20 15:42 | PN ---
DATE: 03/20/2019 SUBJECTIVE: The patient is 73 years old, seen and examined, lying in bed, seems to be comfortable, participating in therapy. No nausea, vomiting. No diarrhea. No fever, no chills. PHYSICAL EXAMINATION: VITAL SIGNS: The patient is afebrile, pulse 70, respirations 20, blood pressure 149/79. LUNGS: Bilateral fair airflow. No rhonchi or crackle. HEART: S1, S2. Audible. ABDOMEN: Soft, obese, nontender. No rebound. No guarding. EXTREMITIES: Bilateral legs no edema. NEUROLOGIC: The patient is awake and alert, able to communicate. LABORATORY DATA: PT 34.5, INR 3.05. Chemistries: Sodium 143, potassium 4.4, chloride 111, CO2 of 25, BUN 19, creatinine 1.7. She is growing Proteus mirabilis UTI. ASSESSMENT: 1. Systemic inflammatory response syndrome with hypotension. 2. Proteus mirabilis urinary tract infection. Blood cultures are negative. 3. History of hypertension. 4. Hyperlipidemia. 5. History of cardiovascular accident in the remote past. PLAN: We will continue the patient on Aricept. She is on atorvastatin. She is on meropenem. We will continue intravenous fluids. We will discharge in the morning. Was a perfect candidate to go to TCU, but her insurance is not accepted, so she will be here to complete her course of antibiotics and she is resistant to all oral antibiotics. Neo Guzman MD
[2019-03-20] MEDS: Sodium Chloride 0.9% 1,000 ML IV SCH ×2 (17:06)
--- NOTE | 2019-03-20 23:18 | PN ---
DATE: 03/20/2019 SUBJECTIVE: The patient is seen in bed, in no acute distress, nontoxic. She is doing much better, much less dysuria. PHYSICAL EXAMINATION: VITAL SIGNS: Temperature is 98, blood pressure is 120/70, respiratory rate of 18. HEENT: Unremarkable. NECK: Supple. LUNGS: Decreased breath sound. HEART: Normal S1, S2. ABDOMEN: Soft and nontender. LABORATORY DATA: Reveals a white count of 5.8, hemoglobin of 9, BUN 19, creatinine of 1.7. Procalcitonin is 0.18. Urinalysis is noted. Toxicology is noted. The patient has a Proteus mirabilis in the urine, sensitive to meropenem, ertapenem, Zosyn and amikacin. No p.o. options. Dr. Guzman's note is reviewed. ASSESSMENT AND PLAN: This is a 73-year-old female who was seen earlier today. The patient is admitted with Proteus urinary tract infection with acute kidney injury. The patient was on Bactrim as outpatient, has a resistant to Proteus, currently on meropenem. Today is day #2 of 5 to 7 days. We will follow with you. Abdifatah Judd MD
--- NOTE | 2019-03-21 02:27 | CON ---
DATE: 03/20/2019 CONSULTATION NOTE HISTORY OF PRESENT ILLNESS: The patient is a 73-year-old female with multiple medical issues including PE, DVT, TIA, hyperlipidemia. The patient was admitted on the medical side for evaluation of low blood pressure. Psych consult was called for evaluation of possible depressive symptoms. The patient was seen and examined. The patient presented to be alert, pleasant, cooperative. 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 The patient said that last year, it was not good. The patient has multiple medical issues. The patient's a few months ago. The patient reported that her daughter was physically sick as well. The patient reports that she has periods of depression, hopelessness, but adamantly denied any thoughts of harming herself or others. The patient reports that she has difficulty to fall asleep and to stay asleep. The patient was educated about Sonata; risks, benefits, and alternatives discussed with the patient. The patient is willing to try that medication. Supportive therapy and empathic listening provided. The patient was appreciative. VITAL SIGNS: Reviewed. Temperature 98.5, blood pressure 149/79, respirations 26, oxygen saturation is 95. MEDICATIONS: Medications were reviewed. The patient is on Tylenol, Lipitor, Aricept, Merrem, Zofran, MiraLax, sodium chloride, and this sheet writer will initiate Sonata as needed for insomnia. LABORATORY DATA: Labs were reviewed. Coagulation reviewed. Blood gas reviewed. Urinalysis reviewed, leukocyte esterase positive and possible urinary tract infection. Microbiology reviewed, Proteus mirabilis in the urine. MENTAL STATUS EXAMINATION: The patient presented to be alert and oriented, pleasant and cooperative, socially appropriate. Mood described as "I had a difficult year." Affect was at times tearful especially when she was talking about her . Affect was mood congruent. Thought process, at times, circumstantial and tangential. Thought content: The patient denied visual, auditory, or tactile hallucinations. Denied paranoid ideation. The patient denied thoughts of harming herself or others, denied intent or plan. Insight and judgment seemed to be fair. Impulses are well controlled. IMPRESSION: Most likely, the patient has adjustment disorder with depressed and anxious mood, rule out major depressive disorder which seems to be moderate with no psychosis. PLAN: Continue current management. Continue current medications. Sonata might be helpful for sleep. We will consider to start antidepressants, but the patient needs to be medically okay. We will follow up and advise accordingly. Should you have any questions, give me a call back. Collaterals were obtained from the nursing staff. The patient does not exhibit any aggression or agitation, socially appropriate. Thank you very much. Domenica Sargent MD MTDNelson
[2019-03-21] MEDS: Sodium Chloride 0.9% 1,000 ML IV SCH ×4 (08:01→13:23)
[2019-03-21] MEDS: Meropenem IV 1 gm in NS 1 GM/50 ML BAG IVPB SCH ×2 (09:30→21:02)
[2019-03-21] MEDS: POLYETHYLENE GLYCOL 3350 17 GM/Dose PACKET PO SCH (09:31)
--- NOTE | 2019-03-21 15:21 | PN ---
DATE: 03/21/2019 SUBJECTIVE: The patient reported that she had a good night's sleep. As per record, the patient did not ask for Sonata and she slept well without any other medication. The patient reported that she use to take Xanax, but it did not fit her body very well. At present moment, the patient feels fine without any psychotropic medication. Discussed with the nursing staff. The patient does not exhibit any aggressive or agitated behavior. The patient is less depressed. More optimistic the patient was looking forward to walk with the physical therapist. This com writer educated the patient about Sonata at the nighttime as needed for insomnia. Risks, benefits and alternatives discussed. The patient ruled that medication down. The patient reported that she does not feel any hopelessness or helplessness and she feels more optimistic. PHYSICAL EXAMINATION: VITAL SIGNS: Reviewed seems to be stable. Temperature is 98.4, pulse 72, blood pressure 123/73, respiration 20 and oxygen saturation is 95. MEDICATIONS: Reviewed. The patient is on Tylenol, Lipitor, Aricept, meropenem, Zofran, MiraLax, sodium chloride. Sonata as needed 5 mg at the nighttime. Most recent labs was from 03/19/2019. MENTAL STATUS EXAMINATION: The patient presented to be alert, pleasant, good personal hygiene, multiple Staph aureus next to the patient and the patient has multiple Tamara next to her wishing her well. The patient seems to have severe supportive daughter. Mood described as okay. Affect was more reactive, mood congruent. Thought process was coherent more goal-directed. Thought content, the patient denied visual, auditory tactile hallucinations. Denied paranoid ideation. The patient denied thoughts of harming herself or others, denied intent or plan. Insight and judgment seems to be improving. Impulses are well controlled. IMPRESSION: Rule out adjustment disorder with depressed and anxious mood, which is improving, rule out mood disorder due to general medical condition. The patient was admitted for urinary tract infection. The patient has dementia and history of anxiety. The patient lost her less than a less than a year ago and a lot of stress stresses in her life. PLAN: Sonata as needed. There is no need for trazodone or Xanax to be resumed. Patient from working with physical therapist the patient is not hopeless not helpless. The patient is more optimistic will follow up on the patient and advise accordingly. Domenica Sargent MD
[2019-03-21] MEDS: Metoprolol Succinate 50 mg XL Tab PO SCH (17:49)
--- NOTE | 2019-03-21 19:33 | PN ---
DATE: 03/21/2019 SUBJECTIVE: The patient is 73 years old, seen and examined. Lying in bed. Seems to be comfortable. Participating in therapy. Still complains of increased frequency of urination, however not burning though. PHYSICAL EXAMINATION: VITAL SIGNS: She is afebrile, pulse 94, respirations 19, blood pressure 153/76. LUNGS: Bilateral fair airflow. No rhonchi or crackle. HEART: S1 and S2 audible. ABDOMEN: Soft, nontender, no rebound, no guarding. NEUROLOGIC: The patient is awake and alert. Able to communicate. EXTREMITIES: Bilateral legs have no edema. LABORATORY DATA: PT 3.05. Chemistry: Sodium 143, potassium 4.4, chloride 111, CO2 of 25. BUN 19, and creatinine 27. ASSESSMENT: 1. Proteus mirabilis urinary tract infection. 2. History of deep vein thrombosis. 3. Hypertension. 4. Hyperlipidemia. 5. Tachycardia. PLAN: Start the patient on metoprolol. Discontinue her IV fluids as she is eating well and her blood pressure is holding. Add oxybutynin. We will follow up CBC, CMP, PT/INR in the morning. Continue antibiotics as recommended by ID and recommendation is to complete course of five to seven days and today is day #3 and follow up PT/INR and adjust Coumadin level. Give her 2 mg of Coumadin today and we will reevaluate patient in the morning. Neo Guzman MD
--- NOTE | 2019-03-22 00:40 | PN ---
DATE: 03/21/2019 SUBJECTIVE: The patient is seen early this morning. No acute distress, nontoxic. PHYSICAL EXAMINATION: VITAL SIGNS: Temperature is 97, blood pressure is 150/70, respiratory rate of 18, heart rate of 94. HEENT: Unremarkable. NECK: Supple. LUNGS: Have decreased breath sounds. HEART: Normal S1, S2. ABDOMEN: Soft. LABORATORY EXAMINATION: Reveals a white count of 5.8, hemoglobin of 9, and platelets of 187. The patient's creatinine is 1.7. As of 03/19/2019, procalcitonin 0.18. Review of orders reveals the patient to be on meropenem. Microbiology reveals the blood cultures are negative. The urine culture is resistant Proteus mirabilis, sensitive to ertapenem, meropenem and Zosyn. ASSESSMENT AND PLAN: This is a 73-year-old female who was seen earlier today in 370, bed 1. Admitted with Proteus urinary tract infection with symptoms and acute kidney injury. The patient was on Bactrim as outpatient. Today is day #3 of meropenem. Would complete five to seven days. Her symptoms are improving. We will also order a chemistry for tomorrow to evaluate the creatinine which appears to be improving. Abdifatah Judd MD
[2019-03-22 07:07] LABS: BASO # 0.04 K/mm3 (0.0-2.0); BASO % 0.5 % (0.0-3.0); EOS # 0.3 (0.0-0.7); EOS % 3.5 % (1.5-5.0); HEMOGLOBIN 9.8 g/dL (12.0-16.0); LYMPH # 1.5 (1.2-3.4); LYMPH % 19.9 % (22.0-35.0); MEAN CELL VOLUME 89.2 fl (80.0-105.0); MEAN CORPUSCULAR HEMOGLOBIN 28.5 pg (25.0-35.0); MEAN CORPUSCULAR HGB CONC 31.9 g/dl (31.0-37.0); MEAN PLATELET VOLUME 10.3 fl (7.0-11.0); MONO # 0.6 (0.1-0.6); RBC 3.44 10^6/uL (3.5-6.1); RED CELL DISTRIBUTION WIDTH 13.3 % (11.5-14.5); WHITE BLOOD COUNT 7.5 10^3/uL (4.5-11.0)
[2019-03-22 07:08] LABS: INR 1.49; PROTHROMBIN TIME 16.8 SECONDS (9.4-12.5)
[2019-03-22 07:29] LABS: ALB/GLOB RATIO 1.1 (1.1-1.8); ALBUMIN 3.2 g/dL (3.0-4.8); ALT/SGPT 26 U/L (7-56); AST/SGOT 23 U/L (14-36); BLOOD UREA NITROGEN 11 mg/dL (7-21); CALCIUM 9.5 mg/dL (8.4-10.5); GFR NON-AFRICAN AMERICAN 55
[2019-03-22] MEDS: Metoprolol Succinate 50 mg XL Tab PO SCH (08:27)
[2019-03-22] MEDS: Meropenem IV 1 gm in NS 1 GM/50 ML BAG IVPB SCH ×2 (09:44→21:12)
[2019-03-22] MEDS: POLYETHYLENE GLYCOL 3350 17 GM/Dose PACKET PO SCH (09:44)
--- NOTE | 2019-03-22 14:08 | PN ---
DATE: 03/22/2019 SUBJECTIVE: The patient is in bed in no acute distress. Overall she is improving. No fevers and chills. PHYSICAL EXAMINATION: VITAL SIGNS: On exam, temperature is 98, blood pressure is 130/80, respiratory rate 20, heart rate of 68. HEENT: Examination of HEENT is unremarkable. NECK: Supple. LUNGS: Have decreased breath sounds. HEART: Normal S1, S2. ABDOMEN: Soft, nontender. LABORATORY DATA: Laboratory examination reveals a white count of 7.5. Chemistries are noted. Urinalysis is noted. Microbiology reveals the patient has Proteus mirabilis which is multidrug resistant Proteus and blood cultures are negative. Review of orders reveals the patient to be on meropenem. ASSESSMENT AND PLAN: A 73-year-old female who was admitted with symptomatic Proteus mirabilis urinary tract infection with acute kidney injury. The patient was on Bactrim as outpatient and currently improving. Today is day #4 of meropenem, would complete 5-7 days of antibiotics. The patient's renal function is normalized at this point with a creatinine of 1. Abdifatah Judd MD
--- NOTE | 2019-03-22 15:22 | PN ---
DATE: 03/22/2019 SUBJECTIVE: The patient was seen today at the morning time. The patient presented relatively well. The patient reported that she had restless night. The patient reported that she did not sleep well because a lot of noise in the hospital. The patient denied feeling depressed. The patient denied any feeling of hopelessness or helplessness. The patient is looking forward for physical therapy today. The patient took Sonata and reported no side effects from that medication. The patient wants to continue on that medication to see how it will make her feel. The patient denied any grogginess or sleepiness at the morning time. PHYSICAL EXAMINATION: VITAL SIGNS: Seems to be stable. MENTAL STATUS EXAM The patient presented to be alert and oriented, pleasant, cooperative, socially appropriate. Mood described. I think I am doing alright. The patient's affect was reactive, mood congruent." Thought process, coherent and goal-directed. Thought content, the patient denied visual, auditory or tactile hallucinations. Denied paranoid ideation. The patient denied thoughts of harming herself or others. Denied intent or plan. Insight and judgment seems to be fair. Impulses are well controlled. LABORATORY DATA: Labs reviewed. Coagulation reviewed. Blood gas reviewed. Chemistry reviewed. Urinalysis reviewed. Toxicology reviewed. MEDICATIONS: Medications reviewed. Tylenol, Lipitor, Aricept, Merrem, Toprol, Zofran, Ditropan, MiraLax, Coumadin, Sonata 5 mg at the nighttime as needed for insomnia. IMPRESSION: Rule out adjustment disorder due to loss of her . PLAN: Continue current management. Continue Sonata. Physical therapy evaluation and followup. We will follow up and advise accordingly. There is no acute issues going on. The patient tolerated Sonata well. We will consider to continue that. Should you have any questions, give me a call back. Domenica Sargent MD
--- NOTE | 2019-03-22 18:28 | CON ---
DATE OF CONSULTATION: 03/22/2019 GENITOURINARY CONSULTATION CHIEF COMPLAINT: Incontinence. HISTORY OF PRESENT ILLNESS: This is a 73-year-old female, who is admitted after being treated as an outpatient for urinary tract infection, which appears to have not been resolving. She was treated originally with Cipro, then with Bactrim. She was noted to be hypotensive at home and was feeling weak and dizzy. She was brought to the emergency room, received IV antibiotics, found to have renal failure, and was admitted for evaluation and treatment. The patient reports a long history of recurrent urinary tract infections and urinary incontinence. She has multiple significant comorbidities including TIA years ago, DVTs, poor ambulation, and obesity. A consultation was then requested regarding UTI and urinary incontinence. PAST MEDICAL HISTORY: Significant for TIA 10 years ago, hypertension, hyperlipidemia, recurrent urinary tract infections, history of DVT. MEDICATIONS: Include Aricept, Coumadin, Ditropan, Lipitor, Merrem, MiraLax, Sonata, Toprol, Tylenol, Zofran. ALLERGIES: NO KNOWN DRUG ALLERGIES. FAMILY HISTORY: Noncontributory for this admission. SOCIAL HISTORY: Denies smoking or EtOH use. REVIEW OF SYSTEMS: Twelve-point review of systems was obtained. Positives as per the HPI. Positive for lower extremity swelling and difficulty ambulating. Positive for low back pain. Denies history of renal colic. Denies any current chest pain or palpitations. Denies any current cough or shortness of breath. Other systems are negative. PHYSICAL EXAMINATION: GENERAL: The patient is awake and alert. She is in no acute distress. VITAL SIGNS: She is afebrile with a temperature of 98.5, pulse of 68, BP 135/81, respirations 20. NECK: Her neck is supple. There is no adenopathy. CHEST: Reveals normal inspiratory effort. CARDIAC: Shows positive S1, S2. There is marked lower extremity edema. ABDOMEN: Obese, soft, nontender, nondistended. There is no hepatosplenomegaly or costovertebral angle tenderness. GENITOURINARY: The patient has a suction device in place for incontinence, which is over her vagina and hooked up to suction. There is clear urine in the tubing and the suction canister. EXTREMITIES: There is no cyanosis. There is 2+ pitting edema. LABORATORY DATA: On laboratory exam, WBC count normal at 7.5. GFR 55, was 10 on admission. BUN was markedly elevated, which has come down, and creatinine was elevated at 4.5, which has come down to 1. On radiologic exam, the patient had an abdominal ultrasound on 03/17 when she was admitted, which showed the right kidney, increased echogenicity with filling of the cortex, two small cysts, left kidney also increased echogenicity with filling of the cortex consistent with medical renal disease, there is a 4 mm echogenic focus in the mid pole consistent with nonobstructing calculus. There was no hydronephrosis or evidence of obstruction. IMPRESSION AND PLAN: This is a 73-year-old female with apparently renal failure likely from medication usage. This has now resolved with fluids and treatment per Nephrology. As for her urinary tract infection, the patient grew Proteus mirabilis in the urine. Her blood cultures were negative. The Proteus was resistant to Cipro and resistant to Bactrim. It is sensitive to meropenem, which she is currently receiving. Plan is to continue treatment for her resistant urinary tract infection per Infectious Disease. As for her urinary incontinence, given the patient's other comorbidities, this is likely going to be an ongoing problem with recurrent infections and incontinence. The patient is currently on Ditropan XL. I would continue the medication as an outpatient if it is helping, and she needs to be titrated to an appropriate dose. If medication is not helping her, we can consider a possible evaluation and treatment perhaps with Botox, if it is recurrent urge incontinence without evidence of infection at the time, the patient will need follow-up urine cultures to make sure her urine remains sterile and that should help her incontinence more than anything as some of it appears to be from a chronic cystitis. Thank you for allowing me to participate in the care of this patient. We will follow her with you. Kobe Ventura MD
--- NOTE | 2019-03-22 20:17 | PN ---
DATE: 03/22/2019 SUBJECTIVE: Patient is 73 years old, seen and examined, lying in bed, seems to be comfortable. No chest pain. No shortness of breath. No nausea or vomiting. Participating in therapy. She complains of increased frequency of urination, but no burning. PHYSICAL EXAMINATION: VITAL SIGNS: Patient is afebrile, pulse 62, respirations 20, blood pressure 107/62. LUNGS: Bilateral fair airflow. No rhonchi or crackle. HEART: S1 and S2 audible. ABDOMEN: Soft, obese, nontender. No rebound. No guarding. NEUROLOGIC: The patient is awake and alert, able to communicate. LABORATORY DATA: WBC is 7.5, hemoglobin 9.8, hematocrit 30.7, platelets 201. PT 16.8. INR 1.49. Chemistry; sodium 139, potassium 4.7, chloride 111, CO2 of 21, BUN 11, creatinine 1.0. Blood sugar of 75. ASSESSMENT: 1. Proteus mirabilis urinary tract infection. 2. Recurrent urinary tract infection. 3. Hypertension. 4. History of transient ischemic attack a couple of years ago. 5. Constipation. PLAN: Currently, patient is on meropenem. We will give her 8 mg of Coumadin today. Awaiting Urology input. ID input noted and appreciated. We will discuss about duration of antibiotics and make a disposition plan. Neo Guzman MD
--- NOTE | 2019-03-23 09:13 | PN ---
DATE: 03/23/2019 SUBJECTIVE: The patient is in bed in no acute distress. Seen earlier this morning, she states that her urinary symptoms have resolved. Overall she is doing much better. PHYSICAL EXAMINATION: VITAL SIGNS: Temperature is 98, blood pressure is 179/71, heart rate of 55 and respiratory rate of 20. HEENT: Unremarkable. NECK: Supple. LUNGS: Have decreased breath sounds. HEART: Normal S1, S2. ABDOMEN: Soft, nontender. LABORATORY EXAMINATION: Reveals a white count of 7.5, hemoglobin of 9. Chemistries reveals a BUN of 11, creatinine of 1.0. Pro calcitonin 0.0188. Urinalysis is noted and toxicology is noted and microbiology reveals there is Proteus mirabilis relatively sensitive resistant organism no p.o. antibiotics available and blood cultures are no growth. Review of orders reveals the patient to be on meropenem. ASSESSMENT AND PLAN: This is a 73-year-old female admitted with symptomatic Proteus mirabilis urinary tract infection with acute kidney injury. The patient was on Bactrim as outpatient, acute kidney injury is resolved. Today is day #5 of meropenem, would complete 5-7 days and once the blood pressure is under control. Abdifatah Judd MD
[2019-03-23] MEDS: Meropenem IV 1 gm in NS 1 GM/50 ML BAG IVPB SCH ×2 (09:57→21:15)
[2019-03-23] MEDS: POLYETHYLENE GLYCOL 3350 17 GM/Dose PACKET PO SCH (09:58)
--- NOTE | 2019-03-23 12:49 | PN ---
DATE: 03/23/2019 SUBJECTIVE: The patient was seen today. The patient presented to be alert and oriented, presented much better to compare with the 2 days before. The patient has good personal hygiene, very nicely combed her hair, also put some make-up on. The patient reported that she slept better. She likes Sonata so far, denied any side effects. The patient denied being depressed, denied thoughts of harming herself or others, denied intent or plan. The patient presented to be alert and oriented. No agitation. No aggression. PHYSICAL EXAMINATION: VITAL SIGNS: Stable. Temperature 97.5, pulse 75, blood pressure 179/71, respiration 20 and oxygen saturation is 96. MENTAL STATUS EXAMINATION: The patient presented to be alert and oriented, pleasant, cooperative, socially appropriate. There is no agitation or aggression. Mood described as getting better. Affect was reactive, mood congruent. Thought process was coherent and goal-directed. Thought content, the patient denied visual, auditory tactile hallucinations. Denied paranoid ideation. The patient denied thoughts of harming herself or others, denied intent or plan. Insight and judgment seems to be fair. Impulses are well controlled. LABORATORY DATA: Labs reviewed. Most recent was from yesterday. MEDICATIONS: Reviewed. The patient is on Lipitor, Aricept, Merrem, Zofran, oxybutynin, chloride, MiraLax, Coumadin, Sonata. IMPRESSION: Rule out adjustment disorder with depressed and anxious mood, rule out grief. The patient lost her less than a year ago, as well as insomnia. PLAN: The patient is improving. Mood is improving. The patient tolerated the Sonata well. There is no acute psychiatric issues going on. The patient is not suicidal, not homicidal, but the patient is not confused, not in any imminent danger to self or others. This securities underwriter will sign off. Should you have any questions, give me a call back. Domenica Sargent MD
--- NOTE | 2019-03-23 22:44 | PN ---
DATE: 03/23/2019 SUBJECTIVE: The patient is 73 years old. Seen and examined. Doing very well. No chest pain. No shortness of breath. PHYSICAL EXAMINATION: VITAL SIGNS: The patient is afebrile, pulse 76, respirations 19, blood pressure 101/59. LUNGS: Bilateral fair airflow. No rhonchi or crackle. HEART: S1 and S2 audible. ABDOMEN: Soft, nontender. No rebound. No guarding. NEUROLOGIC: The patient is awake, alert and oriented. LABORATORY EXAMINATION: WBC 7.5, hemoglobin 9.8, hematocrit 30.7, platelets 201. PT 16.8, INR 1.49. Chemistry: Sodium 139, potassium 4.7, chloride 111, CO2 of 21, BUN 11, creatinine 1, blood sugar of 75. ASSESSMENT: 1. Proteus mirabilis urinary tract infection. 2. Hypertension. 3. History of transient ischemic attack in the past. 4. Hyperlipidemia. 5. Urinary incontinence secondary to neurogenic bladder. PLAN: Dr. Ventura's input noted and appreciated. She needs to follow up with him in his office. She will finish her course of antibiotics tonight and discharge plan for tomorrow. Neo Guzman MD
[2019-03-24 07:54] LABS: INR 1.65; PROTHROMBIN TIME 18.6 SECONDS (9.4-12.5)
[2019-03-24] MEDS: POLYETHYLENE GLYCOL 3350 17 GM/Dose PACKET PO SCH (10:15)
[2019-03-24] MEDS: Meropenem IV 1 gm in NS 1 GM/50 ML BAG IVPB SCH ×2 (10:15→21:34)
--- NOTE | 2019-03-24 14:22 | CP.PCM.CON ---
History of Present Illness - History of Present Illness History of Present Illness: RENAL CONSULT 73 F with PMHx of hypertension, PE, DVT, TIA, and hyperlipidemia that intially presented w/ hypotension, urosepsis and ARF. She awas started on abx, and fluids. Subsequently her DOMINIC has been resolving. BP meds have recently been reintroduced, and bp is improving though a bit labile. PT was for possible d/c but does not want to go home until bp perfect she states. She denies n/v. She denies any fever or chills. She feels overall ok. ROS a full detailed ros is negative except as in my hpi PMHx: Hypertension, PE, DVT, TIA, and hyperlipidemia PSHx: Appendectomy, R arm Allergies: NKDA Fam Hx: No esrd socxh: no active smoke etoh or ivdu pe: vs as below gen: nad sclera:anciteric op: clear neck: supple cv: +S1+s2 no rub lungs : cta b/l abd: soft nt no organomegaly ext: no edema neuro: a+ox3 no focal deficit psych: nml affect skin norash labs and imaging reviewed imp: ARF/ Hypertension/ Renal cyst/ Nephrolithiasis/anemia plan: DOMINIC resolving likely sepsis related atn htn: agree w/ resuming bp meds slowly bp was in the 120's when i saw her. She was very agitated and admen about staying until her bp is w/out any fluctuations but I tried to explain this is normal after acute illness and the meds can be slowly titrated as outpt however she did not appears to want to hear this. would be reasonable to send home on the losartan 50 daily, can also give hydral 25 po bid prn elevations in bp until she can be seen by pcp this week for further titration. f/u outpt re: the stone can repeat renal us in 6 months for the cyst anemia work up per primary team. Past Patient History - Infectious Disease Hx of Infectious Diseases: None - Tetanus Immunizations Tetanus Immunization: Unknown - Past Social History Smoking Status: Never Smoked - CARDIAC Hx Hypertension: Yes - PULMONARY Hx Respiratory Disorders: Yes Hx Bronchitis: Yes - NEUROLOGICAL HX Cerebrovascular Accident: Yes (TIA no deficits 8 yrs ago) - HEENT Hx HEENT Problems: No - RENAL Hx Chronic Kidney Disease: No - ENDOCRINE/METABOLIC Hx Endocrine Disorders: No - HEMATOLOGICAL/ONCOLOGICAL Hx Blood Disorders: No - INTEGUMENTARY Hx Dermatological Problems: Yes Other/Comment: generalized moles over body, dry skin to both heels left heel hard dry skin, dry skin both feet, dry toenails, stage 1 moisture related red closed wound to right buttocks, buttocks reddened - MUSCULOSKELETAL/RHEUMATOLOGICAL Hx Arthritis: Yes - GASTROINTESTINAL Hx Gastrointestinal Disorders: Yes (obese) Other/Comment: constipation about 1 month has bm every 2 days not taking any otc laxatives, winds up going on her own, "but it's hard." stated pt - GENITOURINARY/GYNECOLOGICAL Hx Genitourinary Disorders: Yes Hx Incontinence: Yes Hx Urinary Tract Infection: Yes (uti dx 3 days ago on abx) - PSYCHIATRIC Hx Psychophysiologic Disorder: Yes Hx Anxiety: Yes Hx Depression: Yes Hx Substance Use: No - SURGICAL HISTORY Hx Appendectomy: Yes Other/Comment: R arm sx as child - ANESTHESIA Hx Anesthesia: Yes Hx Anesthesia Reactions: No Meds Allergies/Adverse Reactions: Allergies Allergy/AdvReac Type Severity Reaction Status Date / Time No Known Allergies Allergy Verified 03/16/19 21:09 - Medications Medications: Current Medications Acetaminophen (Tylenol 325mg Tab) 650 mg PO Q6H PRN PRN Reason: Fever >100.4 F Atorvastatin Calcium (Lipitor) 10 mg PO DIN [facility] Last Admin: 03/23/19 18:50 Dose: 10 mg Donepezil HCl (Aricept) 5 mg PO HS [facility] Last Admin: 03/23/19 21:15 Dose: 5 mg Meropenem (Merrem Iv 1 Gm Premix) 1 gm in 50 mls @ 100 mls/hr IVPB Q12 [facility]; Protocol Stop: 03/28/19 16:46 Last Admin: 03/24/19 10:15 Dose: 100 mls/hr Losartan Potassium (Cozaar) 50 mg PO DAILY [facility] Last Admin: 03/24/19 10:16 Dose: 50 mg Ondansetron HCl (Zofran Inj) 4 mg IVP Q6H PRN PRN Reason: Nausea/Vomiting Oxybutynin Chloride (Ditropan Tab) 5 mg PO TID [facility] Last Admin: 03/24/19 10:16 Dose: 5 mg Polyethylene Glycol (Miralax) 17 gm PO DAILY [facility] Last Admin: 03/24/19 10:15 Dose: 17 gm Warfarin Sodium (Coumadin) 8 mg PO 1800 [facility]; Protocol Last Admin: 03/23/19 18:49 Dose: 8 mg Zaleplon (Sonata) 5 mg PO HS PRN PRN Reason: Insomnia Last Admin: 03/23/19 21:15 Dose: 5 mg Results - Vital Signs Recent Vital Signs: Last Vital Signs Temp 98.4 F 03/24/19 06:00 Pulse 97 H 03/24/19 12:11 Resp 20 03/24/19 06:00 BP 122/77 03/24/19 12:11 Pulse Ox 97 03/24/19 06:00 - Labs Result Diagrams: 03/22/19 06:30 03/22/19 06:30 Labs: Laboratory Results - last 24 hr 03/24/19 07:00 PT 18.6 H INR 1.65
[2019-03-25 08:02] LABS: BASO # 0.03 K/mm3 (0.0-2.0); BASO % 0.4 % (0.0-3.0); EOS # 0.2 (0.0-0.7); EOS % 3.4 % (1.5-5.0); HEMOGLOBIN 9.9 g/dL (12.0-16.0); LYMPH # 1.6 (1.2-3.4); MEAN CELL VOLUME 90.1 fl (80.0-105.0); MEAN PLATELET VOLUME 10.6 fl (7.0-11.0); MONO # 0.5 (0.1-0.6); MONO % 7.6 % (1.0-6.0); RBC 3.54 10^6/uL (3.5-6.1); RED CELL DISTRIBUTION WIDTH 13.4 % (11.5-14.5); WHITE BLOOD COUNT 7.1 10^3/uL (4.5-11.0)
[2019-03-25 08:05] LABS: INR 2.86; PROTHROMBIN TIME 32.3 SECONDS (9.4-12.5)
[2019-03-25 08:17] LABS: ALB/GLOB RATIO 1.1 (1.1-1.8); ALBUMIN 3.3 g/dL (3.0-4.8); ALT/SGPT 33 U/L (7-56); BLOOD UREA NITROGEN 15 mg/dL (7-21); GFR NON-AFRICAN AMERICAN 55
[2019-03-25 08:32] LABS: AST/SGOT 22 U/L (14-36); CALCIUM 9.6 mg/dL (8.4-10.5)
[2019-03-25] MEDS: Meropenem IV 1 gm in NS 1 GM/50 ML BAG IVPB SCH ×2 (09:29→21:24)
[2019-03-25] MEDS: POLYETHYLENE GLYCOL 3350 17 GM/Dose PACKET PO SCH (09:30)
--- NOTE | 2019-03-25 11:07 | PN ---
DATE: 03/25/2019 SUBJECTIVE: The patient has no complaints of any chest pain. No shortness of breath. No headaches. PHYSICAL EXAMINATION: VITAL SIGNS: Temperature is 98.4, pulse 97, blood pressure 122/77 and respirations 20. GENERAL: The patient is lying in bed, flat, comfortable. HEENT: No oral lesion. Anicteric sclerae. Moist mucosa. NECK: No JVD, adenopathy, or thyromegaly. CARDIOVASCULAR: S1 and S2, regular. No murmurs, rubs, or gallops. LUNGS: Clear to auscultation bilaterally. No wheeze, rales, or rhonchi. ABDOMEN: Bowel sounds are positive, soft, nontender and nondistended. EXTREMITIES: No cyanosis, clubbing or edema. LABORATORY DATA: White count of 7.1 and hemoglobin 9.9. Creatinine is 1.0 ASSESSMENT: 1. Urinary tract infection secondary to proteus. 2. Hypertension. 3. Dyslipidemia. 4. Urinary incontinence. PLAN: The patient is currently on donepezil for dementia. She is going to be on Losartan for hypertension. The patient remains on Coumadin with an INR that is therapeutic at 2.8. The patient is being followed by Infectious Disease. She is going to need 7-[address] Judd. She is on a heart healthy diet. She is on Ditropan for the urinary incontinence. She is on meropenem for the antibiotics. She is on MiraLax for constipation. Holden Bourgeois MD
--- NOTE | 2019-03-25 16:12 | PN ---
DATE: 03/25/2019 SUBJECTIVE: The patient seen earlier today. She is awake and alert. She states that her dysuria is improving, although still somewhat present, it is overall improved. PHYSICAL EXAMINATION: VITAL SIGNS: On exam, temperature is 98, blood pressure is 130/60, respiratory rate of 18. HEENT: Examination of HEENT is unremarkable. NECK: Supple. LUNGS: Have decreased breath sounds. HEART: Normal S1, S2. ABDOMEN: Soft, nontender. LABORATORY DATA: Laboratory examination reveals a white count of 7.1, hemoglobin of 9. Chemistries are noted. Urinalysis is noted. Toxicology is noted. Microbiology is reviewed with Proteus mirabilis.. Review of orders reveals the patient had meropenem. ASSESSMENT AND PLAN: A 73-year-old female, admitted with symptomatic Proteus mirabilis urinary tract infection with acute kidney injury. The patient had been on Bactrim as outpatient which failed as outpatient with acute kidney injury, is now resolved. Today is day #7 of meropenem, would complete 7-10 days.. Since he patient's symptoms have lasted longer than it should, today is day #7, would complete 7-10 days symptoms have almost resolved. Abdifatah Judd MD
[2019-03-25 17:04] VITALS: RESP 20
[2019-03-26] MEDS: Meropenem IV 1 gm in NS 1 GM/50 ML BAG IVPB SCH (09:54)
[2019-03-26] MEDS: POLYETHYLENE GLYCOL 3350 17 GM/Dose PACKET PO SCH (09:55)
--- NOTE | 2019-03-26 11:48 | PN ---
DATE: 03/26/2019 SUBJECTIVE: The patient has no complaints of any chest pain. No shortness of breath. No headaches. No dizziness. PHYSICAL EXAMINATION: VITAL SIGNS: Temperature is 98.1, pulse of 88, blood pressure 110/60 and respiration is 20. GENERAL: The patient is lying in bed, flat, comfortable. HEENT: No oral lesion. Anicteric sclerae. Moist mucosa. NECK: No JVD, adenopathy, or thyromegaly. CARDIOVASCULAR: S1 and S2, regular. No murmurs, rubs, or gallops. LUNGS: Clear to auscultation bilaterally. No wheeze, rales, or rhonchi. ABDOMEN: Bowel sounds are positive, soft, nontender and nondistended. EXTREMITIES: No cyanosis, clubbing or edema. LABORATORY DATA: White count of 7.1 and hemoglobin 9.9. Creatinine is 1.0. ASSESSMENT: 1. Urinary tract infection secondary to proteus. 2. Hypertension. 3. Dyslipidemia. 4. Urinary incontinence. PLAN: The patient is currently on Aricept. She is going to be on Coumadin for anticoagulation. She is on Lipitor for dyslipidemia. She is on meropenem for antibiotics. She is on MiraLax for constipation. She is on heart healthy diet. She is currently comfortable. Eating well. She denies any pain. Her INR was therapeutic yesterday 3.8. We will repeat the INR tomorrow. Holden Bourgeois MD
--- NOTE | 2019-03-26 12:53 | PN ---
DATE: 03/26/2019 SUBJECTIVE: The patient is in bed, in no acute distress, nontoxic. PHYSICAL EXAMINATION: VITAL SIGNS: Temperature is 98, blood pressure is and heart rate of 90. HEENT: Unremarkable. NECK: Supple. LUNGS: Have decreased breath sounds. HEART: Normal S1 and S2. ABDOMEN: Soft and nontender. No rebound. No guarding. No masses. LABORATORY DATA: Reveals a white count of 7.1, hemoglobin of 9. Chemistries revealed a BUN of 15, creatinine of 1. Urinalysis is noted and microbiology revealed Proteus mirabilis in the urine. The blood cultures are negative. REVIEW OF ORDERS: Revealed the patient is on meropenem. ASSESSMENT AND PLAN: A 73-year-old female, who is admitted with symptomatic Proteus mirabilis urinary tract infection, which is resistant organism with acute kidney injury and the patient had been on outpatient Bactrim, which had failed and today is day #8 of 7-10 days. The patient still has some symptoms although improving. Today is day #8 of 7-10 days. Abdifatah Judd MD
--- NOTE | 2019-03-27 06:15 | PN ---
DATE: 03/24/2019 SUBJECTIVE: The patient is in bed, in no acute distress. Nontoxic. PHYSICAL EXAMINATION: VITAL SIGNS: Temperature is 98, blood pressure is 140/90, respiratory rate 20, heart rate of 98. HEENT: Unremarkable. NECK: Supple. LUNGS: Decreased breath sounds. HEART: Normal S1 and S2. ABDOMEN: Soft. LABORATORY DATA: Laboratory examination is noted. The patient's white count is 7.5, hemoglobin 9. Chemistries are noted and urinalysis is noted. ASSESSMENT AND PLAN: This is a 73-year-old female who was admitted with symptomatic resistant Proteus mirabilis urinary tract infection with acute kidney injury. The patient had been on Bactrim as outpatient and acute kidney injury is resolved, today is day #6 of meropenem, would complete 5 to 7 days of meropenem, today is day #6. The patient is tolerating the antibiotic well and her last creatinine is 1, which has normalized. Abdifatah Judd MD
[2019-03-27 06:27] LABS: INR 8.36; PROTHROMBIN TIME 94.5 SECONDS (9.4-12.5)
[2019-03-27 08:44] LABS: PROTHROMBIN TIME 102.8 SECONDS (9.4-12.5)
[2019-03-27 08:46] LABS: INR 9.1
--- NOTE | 2019-03-27 09:46 | PN ---
DATE: 03/24/2019 SUBJECTIVE: The patient is 73-year-old. Seen and examined. Lying in bed. According to nurse, she does not want to remove the . She states she is incontinent and does not want to wet herself and she does not like to sit on the commode. Denies any nausea or vomiting. PHYSICAL EXAMINATION: VITAL SIGNS: The patient is afebrile, pulse 90, respiration 20, blood pressure 147/91. LUNGS: Bilateral fair airflow. No rhonchi or crackles. HEART: S1, S2 audible. ABDOMEN: Soft. Nontender. No rebound. No guarding. NEUROLOGICAL: The patient is awake and alert, able to communicate. EXTREMITIES: Bilateral leg, no edema. LABORATORY DATA: PT is 18.6, INR 1.65. Chemistry: There is no new chemistry available today. ASSESSMENT: 1. Status post Proteus mirabilis urinary tract infection. 2. Uncontrolled hypertension. 3. Urinary incontinence, probably neurogenic bladder. PLAN: The patient is on Aricept. We will give her Coumadin 8 mg today. We will follow PT/INR in a.m. The patient is very unsatisfied about her blood pressure control and I will call [facility] [employer] to adjust her medication and once she has steady reading of blood pressure in next 24 hours, she will be discharged home. Neo Guzman MD
[2019-03-27] MEDS: POLYETHYLENE GLYCOL 3350 17 GM/Dose PACKET PO SCH (09:47)
[2019-03-27] MEDS ORDERED: Meropenem IV 1 gm in NS 1 GM/50 ML BAG IVPB SCH (11:30)
--- NOTE | 2019-03-27 12:24 | CP.PCM.PN ---
Subjective - Date & Time of Evaluation Date of Evaluation: 03/27/19 Time of Evaluation: 12:22 - Subjective Subjective: RENAL CONSULT 73 F with PMHx of hypertension, PE, DVT, TIA, and hyperlipidemia that intially presented w/ hypotension, urosepsis and ARF. She awas started on abx, and fluids. Subsequently her DOMINIC has been resolving. BP meds have recently been reintroduced, and bp is improving though a bit labile. PT was for possible d/c but does not want to go home until bp perfect she states. She denies n/v. She denies any fever or chills. She feels overall ok. ROS a full detailed ros is negative except as in my hpi she denies CP/SOB. has some burning with urination PMHx: Hypertension, PE, DVT, TIA, and hyperlipidemia PSHx: Appendectomy, R arm Allergies: NKDA Fam Hx: No esrd socxh: no active smoke etoh or ivdu pe: vs as below gen: nad sclera:anciteric op: clear neck: supple cv: +S1+s2 no rub lungs : cta b/l abd: soft nt no organomegaly ext: no edema neuro: a+ox3 no focal deficit psych: nml affect skin norash labs and imaging reviewed imp: ARF/ Hypertension/ Renal cyst/ Nephrolithiasis/anemia plan: DOMINIC resolving likely sepsis related atn htn: controlled on the losartan 50 daily, further titration based upon her BP. f/u outpt re: the stone can repeat renal us in 6 months for the cyst anemia work up per primary team. Objective - Vital Signs/Intake and Output Vital Signs (last 24 hours): Temp Pulse Resp BP Pulse Ox 98 F 75 20 138/70 96 03/27/19 08:25 03/27/19 08:25 03/27/19 08:25 03/27/19 09:46 03/27/19 08:25 - Medications Medications: Current Medications Acetaminophen (Tylenol 325mg Tab) 650 mg PO Q6H PRN PRN Reason: Fever >100.4 F Atorvastatin Calcium (Lipitor) 10 mg PO DIN [facility] Last Admin: 03/26/19 17:05 Dose: 10 mg Donepezil HCl (Aricept) 5 mg PO HS [facility] Last Admin: 03/26/19 21:35 Dose: 5 mg Meropenem (Merrem Iv 1 Gm Premix) 1 gm in 50 mls @ 100 mls/hr IVPB Q12 [facility]; Protocol Losartan Potassium (Cozaar) 50 mg PO DAILY [facility] Last Admin: 03/27/19 09:46 Dose: 50 mg Ondansetron HCl (Zofran Inj) 4 mg IVP Q6H PRN PRN Reason: Nausea/Vomiting Oxybutynin Chloride (Ditropan Tab) 5 mg PO TID [facility] Last Admin: 03/27/19 09:46 Dose: 5 mg Polyethylene Glycol (Miralax) 17 gm PO DAILY [facility] Last Admin: 03/27/19 09:47 Dose: 17 gm Warfarin Sodium (Coumadin) 8 mg PO 1800 [facility]; Protocol Last Admin: 03/26/19 17:06 Dose: 8 mg Zaleplon (Sonata) 5 mg PO HS PRN PRN Reason: Insomnia Last Admin: 03/26/19 21:35 Dose: 5 mg - Labs Labs: 03/25/19 07:00 03/25/19 07:00 PT 102.8 SECONDS (9.4-12.5) H 03/27/19 08:00 INR 9.10 H* 03/27/19 08:00 APTT 59.3 Seconds (26.9-38.3) H 03/16/19 22:25
--- NOTE | 2019-03-27 15:04 | PN ---
DATE: 03/27/2019 SUBJECTIVE: The patient seen earlier this morning in room 370, bed 1. She states she still has somewhat dysuria, although it is greatly improved. PHYSICAL EXAMINATION: VITAL SIGNS: On exam, temperature is 98, blood pressure is 130/70, respiratory rate 16. HEENT: Examination of HEENT is unremarkable. NECK: Supple. LUNGS: Have decreased breath sounds. HEART: Normal S1, S2. ABDOMEN: Soft, nontender. LABORATORY DATA: Laboratory examination is noted. Chemistries reveals a BUN of 15, creatinine of 1. Pro-calcitonin 0.18. Microbiology is noted. Review of orders reveals the patient to be on meropenem, was discontinued by pharmacy. ASSESSMENT AND PLAN: A 73-year-old female seen in room 370, bed 1, admitted with symptomatic Proteus mirabilis urinary tract infection resistant organism with acute kidney injury. The patient had been on Bactrim as outpatient, now improving. Today is day #9, would recommend 7-10 days of antibiotics. Case discussed with PMD. Abdifatah Judd MD
--- NOTE | 2019-03-27 15:58 | PN ---
DATE: 03/27/2019 SUBJECTIVE: The patient is 73 years old, seen and examined, lying in bed, seems to be comfortable. Does not want come out. She ambulates and goes right back to the bed with no complaint. Still has some suprapubic discomfort. PHYSICAL EXAMINATION: VITAL SIGNS: She is afebrile, pulse 75, respirations 20, and blood pressure 138/70. LUNGS: Bilateral fair airflow. No rhonchi or crackles. HEART: S1 and S2 audible. ABDOMEN: Soft and nontender. No rebound. No guarding. NEUROLOGIC: The patient is awake and alert; able to communicate. LABORATORY DATA: PT 102.8, INR 9.10. Chemistry; sodium 139, potassium 4.6, chloride 108, CO2 of 25, BUN 15, and creatinine 1.0. ASSESSMENT: 1. Status post Proteus mirabilis urinary tract infection. 2. History of coagulopathy and history of deep venous thrombosis. 3. Hypertension. 4. Hyperlipidemia. 5. Overactive bladder. 6. History of depression. PLAN: We will hold her Coumadin, give her 5 mg of vitamin K. Currently, she is on Ditropan, we will continue that. We will follow up her CBC, CMP, and PT/INR in a.m. Currently, she is on meropenem as recommended by ID. We will follow up the patient's PT/PTT in a.m. Neo Guzman MD
[2019-03-27 20:03] LABS: PH,URINE 6.5 (4.7-8.0); URINE BILIRUBIN NEGATIVE (NEGATIVE); URINE BLOOD NEGATIVE (NEGATIVE); URINE GLUCOSE (UA) NEGATIVE (NEGATIVE); URINE LEUKOCYTE ESTERASE NEGATIVE Leu/uL (NEGATIVE); URINE PROTEIN NEGATIVE mg/dL (<30 mg/dL); URINE UROBILINOGEN 0.2 E.U./dL (<1 E.U./dL)
[2019-03-27 20:05] LABS: URINE APPEARANCE CLEAR (CLEAR)
[2019-03-27 20:06] LABS: URINE COLOR LIGHT YELLOW (YELLOW)
[2019-03-28] MEDS ORDERED: POLYETHYLENE GLYCOL 3350 17 GM/Dose PACKET PO ONE (05:43)
[2019-03-28 06:53] LABS: INR 2.35; PROTHROMBIN TIME 26.6 SECONDS (9.4-12.5)
[2019-03-28 08:22] VITALS: BP 145/75; PULSE 70; TEMP 98; O2SAT 94
--- NOTE | 2019-03-28 09:17 | CON ---
DATE: 03/28/2019 CONSULTATION REQUESTED BY: Dr. Guzman. REASON FOR CONSULTATION: History of pulmonary embolism, for continuation of anticoagulation. HISTORY OF PRESENT ILLNESS: Ms. 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 She has been on Coumadin since then. She is homebound and sedentary most of the day. Coumadin is managed by Dr. Guzman. Home care nurse draws labs at home to check for PT/INR. She was admitted this time with the UTI. Currently on IV antibiotics. She denies any shortness of breath. No leg pain. INR was supratherapeutic. She received vitamin K yesterday. INR is 2.3 now. PAST MEDICAL HISTORY: TIA, hypertension, hyperlipidemia, recurrent UTI, history of DVT. Currently, on Coumadin. ALLERGIES: NO KNOWN DRUG ALLERGIES. MEDICATIONS: Trazodone, hydralazine, amlodipine, Coumadin, Protonix, Oxybutynin, metoprolol, losartan, Lasix and atorvastatin. SOCIAL HISTORY: Lives with a daughter. PERSONAL HISTORY: No smoking. No history of alcohol abuse. PHYSICAL EXAMINATION: GENERAL: Awake, alert and oriented. Comfortable in bed. Afebrile. VITAL SIGNS: Temperature 98.7, heart rate is 70 per minute, respiratory rate is 18 per minute and blood pressure 100/70. LUNGS: Bilateral air entry present. No rhonchi. No crepitations. CARDIOVASCULAR: S1 and S2, normal. No murmur, rubs, or gallop. ABDOMEN: Soft and nontender. No hepatosplenomegaly. EXTREMITIES: No edema. NEUROLOGIC: Awake, alert and oriented x3. SKIN: No petechiae. No rash. LABORATORY DATA: White count 7.1, hemoglobin 9.9, hematocrit 31.9 and platelet 209. Sodium 139, potassium 4.6 and creatinine 1. ASSESSMENT: 1. History of deep venous thrombosis, pulmonary embolism, on Coumadin for past 1 year. 2. Recurrent urinary tract infection. 3. Acute renal failure. PLAN: She is on Coumadin for the past 1 year. She has very sedentary lifestyle. She had unprovoked DVT a year ago. She is at high risk for recurrent thromboembolism. I would recommend to continue Coumadin, to maintain INR between 2 and 3. She will need lifelong anticoagulation. Thrombophilia workup ordered. If positive for hereditary factors - factor V Leiden or prothrombin gene mutation, children and siblings need to be tested. She has refused to come to the office previously when she was referred by Dr. Guzman for consultation few weeks ago. I advised her to follow up with Dr. Guzman and discussed my recommendations of lifelong anticoagulation. She demonstrated understanding discussion well. Discussed my recommendations with Dr. Guzman. Thank you Dr. Guzman for allowing us to participate in Ms. Ramirez's care. Tana Ag MD KAYLYN
[2019-03-28] MEDS: POLYETHYLENE GLYCOL 3350 17 GM/Dose PACKET PO SCH (09:54)
--- NOTE | 2019-03-28 13:01 | PN ---
DATE: 03/28/2019 SUBJECTIVE: The patient seen earlier today, comfortable, in no acute distress, in room 370, bed 1. PHYSICAL EXAMINATION: VITAL SIGNS: On exam, temperature is 97, blood pressure is 148/80, respiratory rate 16. HEENT: Examination of HEENT is unremarkable. NECK: Supple. LUNGS: Have decreased breath sounds. HEART: Normal S1, S2. ABDOMEN: Soft. LABORATORY DATA: Laboratory examination reveals a white count of 7.1, hemoglobin of 9. BUN of 15, creatinine of 1. Procalcitonin 0.18. Urinalysis is noted and microbiology is reviewed. ASSESSMENT AND PLAN: A 73-year-old, who was seen earlier this morning with symptomatic resistant Proteus mirabilis urinary tract infection. The patient had been on Bactrim as an outpatient with failure; today is day #10. We will discontinue the antibiotic after today's last dose. The patient's antibiotic was discontinued by pharmacy, at this point, off of antibiotics. Abdifatah Judd MD
--- NOTE | 2019-03-28 15:21 | CP.PCM.PN ---
Subjective - Date & Time of Evaluation Date of Evaluation: 03/28/19 Time of Evaluation: 15:21 - Subjective Subjective: RENAL CONSULT 73 F with PMHx of hypertension, PE, DVT, TIA, and hyperlipidemia that intially presented w/ hypotension, urosepsis and ARF. She awas started on abx, and fluids. Subsequently her DOMINIC has been resolving. BP meds have recently been reintroduced, and bp is improving though a bit labile. PT was for possible d/c but does not want to go home until bp perfect she states. She denies n/v. She denies any fever or chills. She feels overall ok. ROS a full detailed ros is negative except as in my hpi she denies CP/SOB. going home soon PMHx: Hypertension, PE, DVT, TIA, and hyperlipidemia PSHx: Appendectomy, R arm Allergies: NKDA Fam Hx: No esrd socxh: no active smoke etoh or ivdu pe: vs as below gen: nad sclera:anciteric op: clear neck: supple cv: +S1+s2 no rub lungs : cta b/l abd: soft nt no organomegaly ext: no edema neuro: a+ox3 no focal deficit psych: nml affect skin norash labs and imaging reviewed imp: ARF/ Hypertension/ Renal cyst/ Nephrolithiasis/anemia plan: DOMINIC resolving likely sepsis related atn htn: controlled on the losartan 50 daily, further titration based upon her BP. f/u outpt re: the stone can repeat renal us in 6 months for the cyst anemia work up per primary team. Objective - Vital Signs/Intake and Output Vital Signs (last 24 hours): Temp Pulse Resp BP Pulse Ox 98 F 70 20 145/75 94 L 03/28/19 08:21 03/28/19 09:54 03/28/19 08:21 03/28/19 09:54 03/28/19 08:21 Intake and Output: 03/28/19 03/28/19 06:59 18:59 Intake Total 1160 Output Total 850 Balance 310 - Medications Medications: Current Medications Acetaminophen (Tylenol 325mg Tab) 650 mg PO Q6H PRN PRN Reason: Fever >100.4 F Atorvastatin Calcium (Lipitor) 10 mg PO DIN [facility] Last Admin: 03/27/19 17:39 Dose: 10 mg Donepezil HCl (Aricept) 5 mg PO HS [facility] Last Admin: 03/27/19 21:26 Dose: 5 mg Losartan Potassium (Cozaar) 50 mg PO DAILY [facility] Last Admin: 03/28/19 09:54 Dose: 50 mg Ondansetron HCl (Zofran Inj) 4 mg IVP Q6H PRN PRN Reason: Nausea/Vomiting Oxybutynin Chloride (Ditropan Tab) 5 mg PO TID [facility] Last Admin: 03/28/19 09:54 Dose: 5 mg Polyethylene Glycol (Miralax) 17 gm PO DAILY [facility] Last Admin: 03/28/19 09:54 Dose: 17 gm Zaleplon (Sonata) 5 mg PO HS PRN PRN Reason: Insomnia Last Admin: 03/27/19 21:26 Dose: 5 mg - Labs Labs: 03/25/19 07:00 03/25/19 07:00 PT 26.6 SECONDS (9.4-12.5) H 03/28/19 06:00 INR 2.35 03/28/19 06:00 APTT 59.3 Seconds (26.9-38.3) H 03/16/19 22:25
--- NOTE | 2019-03-29 03:08 | DS ---
HISTORY OF PRESENT ILLNESS: The patient is a 73-year-old, seen and examined. Still complain of suprapubic discomfort. No fever or chills noted. Eating and tolerating. No nausea or vomiting. No diarrhea. PHYSICAL EXAMINATION: VITAL SIGNS: She is afebrile, pulse 70, respirations 20, and blood pressure 145/75. LUNGS: Bilateral fair airflow. No rhonchi or crackle. HEART: S1 and S2 audible. ABDOMEN: Soft, obese, and nontender. No rebound. No guarding. NEUROLOGIC: The patient is awake, alert, and able to communicate. LABORATORY DATA: Her PT is 26.6 and INR 2.35. Chemistry; sodium 139, potassium 4.6, chloride 108, CO2 of 25, BUN 15, creatinine 1, and blood sugar of 76. Repeat urine is negative. ASSESSMENT: 1. Status post Proteus mirabilis urinary tract infection. 2. History of deep venous thrombosis, coagulation workup has been ordered by Dr. Ag. 3. Hyperlipidemia. 4. Hypertension. PLAN: The patient finished course of antibiotic. Repeat urine is negative. Her Coumadin is therapeutic. The patient is going to be discharge today. She will be discharged on Coumadin 3 mg daily. She will be on oxybutynin 5 mg three times a day and we will give her metoprolol 25 at bedtime and I will increase her losartan to 100 daily and we will follow up in office and we will monitor her PT/INR. We will follow up the patient as outpatient in 2 weeks. Neo Guzman MD
== END 2019-03-28 18:46 | disposition home health service (06) | DRG 689 ==
LOC: ED 20:49 → ERH 03-17 00:47 → 3RSO 03-17 03:52
PROVIDERS: ADMIT Internal Medicine; ATTEND Internal Medicine
DX: N39.0 Urinary tract infection, site not specified (principal); N17.0 Acute kidney failure with tubular necrosis; I95.9 Hypotension, unspecified; I10 Essential (primary) hypertension; I27.20 Pulmonary hypertension, unspecified; E86.0 Dehydration; F41.9 Anxiety disorder, unspecified; Z86.718 Personal history of other venous thrombosis and embolism; Z87.440 Personal history of urinary (tract) infections; Z86.73 Personal history of transient ischemic attack (TIA), and cerebral infarction without residual deficits; Z79.01 Long term (current) use of anticoagulants; R79.1 Abnormal coagulation profile; B96.4 Proteus (mirabilis) (morganii) as the cause of diseases classified elsewhere; F43.23 Adjustment disorder with mixed anxiety and depressed mood; N31.9 Neuromuscular dysfunction of bladder, unspecified; N39.498 Other specified urinary incontinence; D64.9 Anemia, unspecified; E66.9 Obesity, unspecified; E78.5 Hyperlipidemia, unspecified; F03.90 Unspecified dementia, unspecified severity, without behavioral disturbance, psychotic disturbance, mood disturbance, and anxiety; Z86.711 Personal history of pulmonary embolism; K59.00 Constipation, unspecified; N20.0 Calculus of kidney; N28.1 Cyst of kidney, acquired; N32.81 Overactive bladder; Z16.23 Resistance to quinolones and fluoroquinolones; Z16.29 Resistance to other single specified antibiotic; Z79.899 Other long term (current) drug therapy; Z90.49 Acquired absence of other specified parts of digestive tract; Z68.32 Body mass index [BMI] 32.0-32.9, adult